=== PATIENT | female | born 1955 | race Caucasian/White ===

== ENCOUNTER 2019-09-10 23:10 | Inpatient (IN) ==
[2019-09-11] MEDS ORDERED: ACETAMINOPHEN 325 MG TAB PO PRN (03:21)
[2019-09-11] MEDS ORDERED: HYDROmorphone INJ 0.5 MG/0.5 ML SYR IV PRN (03:21)
[2019-09-11] MEDS ORDERED: ONDANSETRON INJ 2 MG/ML 2 ML VIAL IV PRN (03:21)
[2019-09-11] MEDS: SODIUM CHLORIDE 0.9% 1000ML 1,000 ML IV SCH ×3 (03:37→21:18)
[2019-09-11] MEDS ORDERED: FLUTICASONE/VILANTEROL 100/25MCG 14 PUFFS/INHALER INH PRN (03:56)
[2019-09-11] MEDS ORDERED: FEXOFENADINE 60MG/PSEUDOEPHEDRINE 120MG TAB PO PRN (03:58)
--- NOTE | 2019-09-11 04:07 | History and Physical Report ---
DATE OF ADMISSION: 09/11/2019 CHIEF COMPLAINT: Right flank pain. HISTORY OF PRESENT ILLNESS: This is a 64-year-old female with past medical history significant for history of hypothyroidism, gastric bypass in 2005, history of hypertension, depression, morbid obesity, obstructive sleep apnea, was transferred from [facility] because of the right hydronephrosis and possible pyelonephritis. The patient says since about a week ago she is having pressure in the suprapubic region, but the day before yesterday she had some burning micturition and called family doctor and was prescribed Keflex, but since yesterday afternoon, she had severe pain in the right groin region, which prompted her to go to the [facility] where a workup was done. Her UA was positive and her creatinine was okay. White count was 16. Imaging studies, CT of the abdomen and pelvis shows right sided hydronephrosis and hydroureter, but no evidence of stone. Findings may be secondary to pyelonephritis or infection and the patient was transferred here for Urology consult. The patient received Rocephin and pain medication at an outside hospital. Currently resting comfortably and hemodynamically stable. The pain has improved. Earlier she felt nauseous but ok now.About a week ago, she had some low-grade temperature, but right now she is afebrile. Lives with her . No other complaints. No headache, no blurred vision, no earache, no runny nose, no sore throat, no cough, no difficulty swallowing. No loss of sense of smell or taste. No shortness of breath, no chest pain, no diarrhea, no constipation, no blood in stool or black stool, no hematuria. No rash. No edema. ALLERGIES: PENICILLINS AND SULFA ANTIBIOTICS. PAST MEDICAL HISTORY: As mentioned above. PAST SURGICAL HISTORY: Had sinus surgery, gastric bypass surgery, ligation of oviducts, removal of thyroid gland, tonsillectomy, total abdominal hysterectomy with removal of tubes. MEDICATIONS: The patient is on Symbicort 2 puffs inhalation b.i.d. p.r.n., Cymbalta 30 mg p.o. daily, Clotilde D 24 hour one tablet a.m., Synthroid 200 mcg p.o. daily, lisinopril 40 mg p.o. daily. FAMILY HISTORY: She says both parents are in their 90s and they are doing good. Brother has diabetes. SOCIAL HISTORY: , lives with her . No smoking, no alcohol. REVIEW OF SYMPTOMS: As per HPI. Rest of review of symptoms negative. PHYSICAL EXAMINATION: GENERAL: The patient is obese, not in acute distress. VITAL SIGNS: Temperature 37, pulse 91, respiratory rate 16, blood pressure 107/71, oxygen 94% room air. HEENT: Head atraumatic. NECK: No JVD, no neck masses. CARDIOVASCULAR: S1, S2 heard, regular rate and rhythm, no murmur, no gallop. RESPIRATORY SYSTEM: Normal AP diameter. No accessory muscle use. No wheezing, no crackles. ABDOMEN: Soft, bowel sounds present, nontender. No distention, no CVA tenderness, no guarding, no rigidity. CENTRAL NERVOUS SYSTEM: Cranial nerves II-XII grossly intact. Nonfocal. EXTREMITIES: No edema, no erythema. LABORATORY DATA: Labs done at [facility]. UA is positive for nitrite. Urine colony preliminary report shows gram-negative bacillus. Sodium 135, potassium 4.2, chloride 103, bicarbonate 25, BUN 17, creatinine 0.8, serum glucose 152, calcium 8.7, total bilirubin 0.6, AST 29, ALT 35, alkaline phosphatase 124, lipase 159. WBC 16, hemoglobin 13.7, hematocrit 39.8, platelets 287. IMAGING: CT of abdomen and pelvis shows right sided hydronephrosis and hydroureter, but no evidence of stone, findings may be secondary to pyelonephritis or infection. ASSESSMENT AND PLAN: This is a 64-year-old female who went to [facility] because of right groin and flank pain and also found to have urinary tract infection and also right hydronephrosis and hydroureter with no stone, possible pyelonephritis. 1. Right sided hydronephrosis, hydroureter, urinary tract infection: Possible pyelonephritis, leukocytosis. UA is positive with gram-negative bacilli. Empirically started on IV Rocephin, IV fluids, n.p.o. for now, IV Dilaudid p.r.n. for pain, IV antiemetics. Consult Urology. Follow the cultures. 2. Obstructive sleep apnea: On CPAP at bedtime. 3. History of hypertension: On lisinopril. We will monitor blood pressure. 4. Hypothyroidism: Continue Synthroid. 5. Depression: Continue Cymbalta. 6. Deep venous thrombosis prophylaxis: Sequential compression devices. DISPOSITION: Monitor in the medical floor. Expect discharge home and follow with family doctor. Level 1 full code. MTDD
[2019-09-11 06:22] LABS: Basophils # (auto) 0.04 K/uL (0-0.2); Basophils % (auto) 0.6 %; Eosinophils # (auto) 0.16 K/uL (0-0.5); Eosinophils % (auto) 2.3 %; Hematocrit (blood only) 37.5 % (37-47); Hemoglobin 12.6 g/dL (12.0-16.0); Immature Granulocytes # (auto) 0.05 K/uL (0.00-0.02); Immature Granulocytes % (auto) 0.7 %; Lymphocytes # (auto) 1.38 K/uL (1.2-3.4); Lymphocytes % (auto) 19.6 %; Mean Corpuscular Hemoglobin 33.1 pg (25-34); Mean Corpuscular Hgb Conc 33.6 g/dL (32-36); Mean Corpuscular Volume 98.4 fL (80-100); Mean Platelet Volume 10.4 fL (7.4-10.4); Monocytes # (auto) 0.97 K/uL (0.11-0.59); Monocytes % (auto) 13.8 %; Neutrophils # (auto) 4.44 K/uL (1.4-6.5); Platelet Count 239 K/uL (130-400); RDW Coefficient of Variation 12.9 % (11.5-14.5); RDW Standard Deviation 46.8 fL (36.4-46.3); Red Blood Count 3.81 M/uL (4.2-5.4); White Blood Count 7.04 K/uL (4.8-10.8)
[2019-09-11] MEDS: LEVOTHYROXINE SODIUM 200 MCG TABLET PO SCH (06:31)
[2019-09-11 06:32] LABS: INR 1.1 (0.9-1.1); Partial Thromboplastin Time 27.5 Seconds (21.0-31.0); Prothrombin Time 11.6 Seconds (9.0-12.0)
--- NOTE | 2019-09-11 06:59 | Hospitalist Progress Note ---
Date of Service September 11, 2019 Assessment & Plan (1) UTI (urinary tract infection): (2) Pyelonephritis: (3) Hydroureter: (4) Hydronephrosis: eval, Abx, w/u in progress Labs checked ROS-No Headache, No Visual Changes, No Nausea, No Vomiting, No Fever, No Chills, No Neck Pain or Stiffness, No Chest Pain, No Palpitations, No SOB, No RESENDIZ, No Cough, No Sputum, No Wheezing, No Abdominal Pain, No Diarrhea, No Hematemesis, No Hemoptysis, No Unexpected Weight Loss, No Flank pain, No Melena, No Hematochezia, No Frequency, No Urgency, No Burning, No Hematuria, No Rashes, No Diaphoresis. Appetite is Normal Physical Exam Gen-AAO x 3, NAD, Afebrile Head-NCAT, EOMI, PERRLA, Anicteric Sclera, No Posterior Pharyngeal Erythema Neck-Supple, No JVD, No Thyromegaly, No Masses, No LAD, No Bruits Lungs-Clear to Auscultation Bilaterally, No Rales, No Rhonchi, No Wheezing, No Crepitus Chest-No S4, +S1, +S2, No S3, No Murmurs, No Rubs, No Gallops, No Ectopy Abdomen-Soft, Bowel Sounds Present, Non Tender, Non Distended, No Hepatomegaly, No Splenomegaly, No Palpable Masses, No Rebound, No Rigidity, No Guarding Musculoskeletal-Full Range of Motion Bilaterally, No CVAT Extremities-No Cyanosis, No Clubbing, No Edema Nuero-Cranial Nerves II-XII grossly intact, Motor WNL, DTRs WNL, Strength WNL, Non Focal Psych-Normal Mood Admission and Anticipated Discharge Date Admission Date: September 11, 2019 Results & Data Results & Data ([facility]) Vital Signs (Past 12 Hours) Vital Signs Temp Pulse Resp BP Pulse Ox 09/11/19 02:13 37 C 91 H 16 107/71 94
[2019-09-11 07:04] LABS: BUN Creatinine Ratio 21.6 (10-20); Calcium 8.2 mg/dl (8.5-10.1); Creatinine Clr Calc Pharmacy 89.5 ml/min; Est GFR (African American) 92.5; Est GFR (Non-African American) 79.8; Potassium 3.8 mmol/L (3.5-5.1)
--- NOTE | 2019-09-11 07:31 | XRay Report ---
XR chest 1V portable CLINICAL HISTORY: Preoperative evaluation. COMPARISON STUDY: No previous studies for comparison. FINDINGS: Lung volumes are normal. Lungs are clear. There is no pneumothorax or pleural effusion. Car diac size is at the upper limits of normal. Mediastinal contours are normal. There is no evidence for pulmonary edema. Surgical clips project over the lower neck and upper chest. IMPRESSION: No acute cardiopulmonary findings. ACT 112: Negative or not required by law. Electronically signed by: Anup Harrison M.D. 09/11/2019 7:30 AM
[2019-09-11] MEDS: cefTRIAXone SODIUM 2,000 MG in DEXTROSE 5% 50 ML IV SCH (09:04)
[2019-09-11] MEDS: lisinopriL 40 MG TAB PO SCH (09:06)
[2019-09-11] MEDS: DULOXETINE HCL 30 MG CAP PO SCH (09:06)
--- NOTE | 2019-09-11 12:41 | Urology Consultation ---
Date of Consultation September 11, 2019 Assessment & Plan (1) UTI (urinary tract infection): (2) Pyelonephritis: Agree with supportive care and management of UTI and pyelo with IV abx and monitoring. Will need repeat imaging with SUSAN in next 2-3 days to confirm improvement of [place] vs chronic issue. Recommend continued drainage if retaining with catheter but okay to try to monitor with voiding. Monitor for worsening fevers or renal failure. Continue with monitoring. Will hold on any surgical intervention at this time unless severe fevers or renal function changes. Will need outpatient monitoring and workup in future for plans for prevention of further UTI. (3) Hydroureter: History of Present Illness Attending Physician: Gabriel Rodrigues DO History of Present Illness New consultation for patient with UTI/Pyelo, discomfort, and ill feelings. Long history of issues and previous UTI. Patient developed sudden onset of pain into flank going down and radiating into groin and back in waves comes and goes. Can be severe at times. Found to have hydronephrosis without obvious stone on outside imaging. Discussed and reviewed patient's family history for any history of issues, infections, and disease. Also, discussed patient's medical/surgery history especially related to any history of urinary issues or stone disease. No significant family history of issues. Patient was admitted and is undergoing observation with broad spectrum IV antibiotics. Allergies Allergy/AdvReac Type Severity Reaction Status Date / Time Sulfa (Sulfonamide Allergy Unknown Verified 09/11/19 03:19 Antibiotics) Home Medications Home Medications Medication Instructions Recorded Confirmed Type budesonide-formoterol [Symbicort] 2 puff INHALATION BID PRN 09/11/19 09/11/19 History duloxetine [Cymbalta] 30 mg PO DAILY 09/11/19 09/11/19 History fexofenadine-pseudoephedrine 1 tab PO QAM 09/11/19 09/11/19 History [Clotilde-D 24 Hour] levothyroxine [Synthroid] 200 mcg PO DAILY 09/11/19 09/11/19 History lisinopril 40 mg PO DAILY 09/11/19 09/11/19 History Patient History Social History Smoking Status: Never smoker Hx Alcohol Use: No Hx Substance Use: No Preferred Language: Nigerian Tariff Compiler Required: No Beliefs That Will Affect Care: None Current Living Situation: Spouse Other Information That Helps Us Care for You: No Feels Safe at Home: Yes Safety Concerns: Feels Safe At This Time Review of Systems Review of Systems: All systems reviewed & are unremarkable except as noted in HPI & below Physical Exam Physical Exam: General: Alert and oriented x 3 in no acute distress. Patient is well nourished and well kept. HEENT: Normocephalic Atraumatic. Inspection normal. Cranial Nerves 2-12 Grossly intact. Nares are clear. Neck is supple. Normal inspection of face. Normal inspection of neck. Neurologic: No deficits on inspection. Baseline for motor function and sensory. Psychologic: Normal affect. Respiratory: Nonlabored. No use of accessory muscles. No tachypnea or dyspnea. Cardiovascular: No tachycardia Skin: [place] and Dry. No rashes or visible lesions. Extremities: Moving without issues. No motor deficits on inspection Lymphatics: No edema Abdomen: Soft Non-distended. No acites. No rebound or guarding. Results & Data Vital Signs (Past 12 Hours) Vital Signs Temp Pulse Resp BP Pulse Ox 09/11/19 07:22 36.7 C 60 18 103/60 95 09/11/19 02:13 37 C 91 H 16 107/71 94 PG Care Time/CCT Total # of Minutes Spent Total Time Spent with Patient: Total time spent is greater than 50% in coordination of care (as documented) at patient's floor/unit and/or counseling patient: Coding Level of Care Code 43694 Inpt Consult Level 5 Diagnoses UTI (urinary tract infection) N39.0 Pyelonephritis N12 Hydroureter N13.4
--- NOTE | 2019-09-11 16:04 | Electrocardiogram Report ---
Test Reason : Blood Pressure : / mmHG Vent. Rate : 065 BPM Atrial Rate : 065 BPM P-R Int : 168 ms QRS Dur : 104 ms QT Int : 426 ms P-R-T Axes : 036 041 055 degrees QTc Int : 443 ms Normal sinus rhythm Normal ECG No previous ECGs available Confirmed by Konstantin Frausto ([id number]) on 09/11/2019 4:04:12 PM Referred By: Rashard York Confirmed By:Konstantin Frausto
[2019-09-12] MEDS: SODIUM CHLORIDE 0.9% 1000ML 1,000 ML IV SCH ×2 (05:34→13:43)
[2019-09-12] MEDS: LEVOTHYROXINE SODIUM 200 MCG TABLET PO SCH (05:34)
--- NOTE | 2019-09-12 06:53 | Hospitalist Progress Note ---
Date of Service September 12, 2019 Assessment & Plan (1) UTI (urinary tract infection): (2) Pyelonephritis: (3) Hydroureter: (4) Hydronephrosis: on case, Abx, repeat imaging today Labs checked ROS-No Headache, No Visual Changes, No Nausea, No Vomiting, No Fever, No Chills, No Neck Pain or Stiffness, No Chest Pain, No Palpitations, No SOB, No RESENDIZ, No Cough, No Sputum, No Wheezing, No Abdominal Pain, No Diarrhea, No Hematemesis, No Hemoptysis, No Unexpected Weight Loss, No Flank pain, No Melena, No Hematochezia, No Frequency, No Urgency, No Burning, No Hematuria, No Rashes, No Diaphoresis. Appetite is Normal Physical Exam Gen-AAO x 3, NAD, Afebrile Head-NCAT, EOMI, PERRLA, Anicteric Sclera, No Posterior Pharyngeal Erythema Neck-Supple, No JVD, No Thyromegaly, No Masses, No LAD, No Bruits Lungs-Clear to Auscultation Bilaterally, No Rales, No Rhonchi, No Wheezing, No Crepitus Chest-No S4, +S1, +S2, No S3, No Murmurs, No Rubs, No Gallops, No Ectopy Abdomen-Soft, Bowel Sounds Present, Non Tender, Non Distended, No Hepatomegaly, No Splenomegaly, No Palpable Masses, No Rebound, No Rigidity, No Guarding Musculoskeletal-Full Range of Motion Bilaterally, No CVAT Extremities-No Cyanosis, No Clubbing, No Edema Nuero-Cranial Nerves II-XII grossly intact, Motor WNL, DTRs WNL, Strength WNL, Non Focal Psych-Normal Mood Admission and Anticipated Discharge Date Admission Date: September 11, 2019 Results & Data Results & Data ([facility]) Vital Signs (Past 12 Hours) Vital Signs Temp Pulse Resp BP Pulse Ox 09/11/19 22:52 36.5 C 67 17 114/71 94
[2019-09-12] MEDS: cefTRIAXone SODIUM 2,000 MG in DEXTROSE 5% 50 ML IV SCH (08:47)
[2019-09-12] MEDS: DULOXETINE HCL 30 MG CAP PO SCH (08:48)
[2019-09-12] MEDS: lisinopriL 40 MG TAB PO SCH (08:48)
[2019-09-12 10:06] LABS: Basophils # (auto) 0.05 K/uL (0-0.2); Basophils % (auto) 0.9 %; Eosinophils % (auto) 5.3 %; Hematocrit (blood only) 39.9 % (37-47); Immature Granulocytes # (auto) 0.02 K/uL (0.00-0.02); Immature Granulocytes % (auto) 0.4 %; Lymphocytes % (auto) 24.5 %; Mean Corpuscular Hemoglobin 32.3 pg (25-34); Mean Corpuscular Hgb Conc 32.6 g/dL (32-36); Mean Platelet Volume 10.8 fL (7.4-10.4); Monocytes # (auto) 0.45 K/uL (0.11-0.59); Monocytes % (auto) 7.9 %; Neutrophils # (auto) 3.49 K/uL (1.4-6.5); Platelet Count 270 K/uL (130-400); RDW Coefficient of Variation 12.9 % (11.5-14.5); RDW Standard Deviation 46.7 fL (36.4-46.3); Red Blood Count 4.03 M/uL (4.2-5.4); White Blood Count 5.71 K/uL (4.8-10.8)
[2019-09-12 10:42] LABS: Albumin Globulin Ratio 0.8 (0.9-2); Albumin Level 3.2 gm/dl (3.4-5.0); BUN Creatinine Ratio 14.6 (10-20); Bilirubin,Total 0.3 mg/dl (0.2-1); Calcium 8.6 mg/dl (8.5-10.1); Creatinine Clr Calc Pharmacy 93.1 ml/min; Est GFR (African American) 96.9; Est GFR (Non-African American) 83.6; Globulin 4.2 gm/dl (2.5-4.0); Potassium 3.8 mmol/L (3.5-5.1); Total Protein 7.4 gm/dl (6.4-8.2)
--- NOTE | 2019-09-12 11:26 | Ultrasound Report ---
US renal/blad retro comp HISTORY: 64 years-old Female Hydronephrosis, Hydroureter follow-up study in a patient with right hyd ronephrosis COMPARISON: CT abdomen and pelvis from outside facility 09/10/2019 TECHNIQUE: Multiple real-time sonographic images of the kidneys and urinary bladder were obtained ass essing grayscale appearance and color flow FINDINGS: The right kidney measures 12.6 x 5.1 x 6.5 cm. There is mild pelviectasis with apparent resolution of the previously described hydronephrosis. No right-sided renal calculi or suspicious mass lesions. Left kidney measures 11.8 x 5.2 x 4.8 cm and is unremarkable without renal calculi, hydronephrosis or suspicious mass lesion. Urinary bladder is unremarkable with bilateral ureteral jets noted. Hepatic steatosis. IMPRESSION: 1. Mild right-sided pelviectasis without appreciable hydronephrosis. 2. No renal calculi identified. 3. Hepatic steatosis. ACT 112: Negative or not required by law. The above report was generated using voice recognition software. It may contain grammatical, syntax o r spelling errors. Electronically signed by: Iggy Hernandez M.D. 09/12/2019 11:25 AM
--- NOTE | 2019-09-12 12:47 | Discharge Summary ---
Date of Service September 12, 2019 Admission HPI Per Admitting Provider 64-year-old female with past medical history significant for history of hypothyroidism, gastric bypass in 2005, history of hypertension, depression, morbid obesity, obstructive sleep apnea, was transferred from [facility] because of the right hydronephrosis and possible pyelonephritis. The patient says since about a week ago she is having pressure in the suprapubic region, but the day before yesterday she had some burning micturition and called family doctor and was prescribed Keflex, but since yesterday afternoon, she had severe pain in the right groin region, which prompted her to go to the [facility] where a workup was done. Her UA was positive and her creatinine was okay. White count was 16. Imaging studies, CT of the abdomen and pelvis shows right sided hydronephrosis and hydroureter, but no evidence of stone. Findings may be secondary to pyelonephritis or infection and the patient was transferred here for Urology consult. The patient received Rocephin and pain medication at an outside hospital. Currently resting comfortably and hemodynamically stable. The pain has improved. Earlier she felt nauseous but ok now.About a week ago, she had some low-grade temperature, but right now she is afebrile. Lives with her . No other complaints. No headache, no blurred vision, no earache, no runny nose, no sore throat, no cough, no difficulty swallowing. No loss of sense of smell or taste. No shortness of breath, no chest pain, no diarrhea, no constipation, no blood in stool or black stool, no hematuria. No rash. No edema. Admission Exam Per Admitting Provider GENERAL: The patient is obese, not in acute distress. VITAL SIGNS: Temperature 37, pulse 91, respiratory rate 16, blood pressure 107/71, oxygen 94% room air. HEENT: Head atraumatic. NECK: No JVD, no neck masses. CARDIOVASCULAR: S1, S2 heard, regular rate and rhythm, no murmur, no gallop. RESPIRATORY SYSTEM: Normal AP diameter. No accessory muscle use. No wheezing, no crackles. ABDOMEN: Soft, bowel sounds present, nontender. No distention, no CVA tenderness, no guarding, no rigidity. CENTRAL NERVOUS SYSTEM: Cranial nerves II-XII grossly intact. Nonfocal. EXTREMITIES: No edema, no erythema. Principal Diagnosis (1) UTI (urinary tract infection): (2) Pyelonephritis: (3) Hydroureter: (4) Hydronephrosis: Discharge Exam See below Discharge Data Allergies Allergy/AdvReac Type Severity Reaction Status Date / Time Sulfa (Sulfonamide Allergy Unknown Verified 09/11/19 03:19 Antibiotics) Consultations 09/11/19 03:21 Consult Case Management - Discharge Planning Routine 09/11/19 08:00 Consult Urology Routine Ordered Studies 09/12/19 06:53 US renal/blad retro comp Routine IMPRESSION: 1. Mild right-sided pelviectasis without appreciable hydronephrosis. 2. No renal calculi identified. 3. Hepatic steatosis. Hospital Course (1) UTI (urinary tract infection): (2) Pyelonephritis: (3) Hydroureter: (4) Hydronephrosis: on case, Abx, repeat imaging today revealed no hydronephrosis, will DC today on PO Ceftin for 7 days Labs checked ROS-No Headache, No Visual Changes, No Nausea, No Vomiting, No Fever, No Chills, No Neck Pain or Stiffness, No Chest Pain, No Palpitations, No SOB, No RESENDIZ, No Cough, No Sputum, No Wheezing, No Abdominal Pain, No Diarrhea, No Hematemesis, No Hemoptysis, No Unexpected Weight Loss, No Flank pain, No Melena, No Hematochezia, No Frequency, No Urgency, No Burning, No Hematuria, No Rashes, No Diaphoresis. Appetite is Normal Physical Exam Gen-AAO x 3, NAD, Afebrile Head-NCAT, EOMI, PERRLA, Anicteric Sclera, No Posterior Pharyngeal Erythema Neck-Supple, No JVD, No Thyromegaly, No Masses, No LAD, No Bruits Lungs-Clear to Auscultation Bilaterally, No Rales, No Rhonchi, No Wheezing, No Crepitus Chest-No S4, +S1, +S2, No S3, No Murmurs, No Rubs, No Gallops, No Ectopy Abdomen-Soft, Bowel Sounds Present, Non Tender, Non Distended, No Hepatomegaly, No Splenomegaly, No Palpable Masses, No Rebound, No Rigidity, No Guarding Musculoskeletal-Full Range of Motion Bilaterally, No CVAT Extremities-No Cyanosis, No Clubbing, No Edema Nuero-Cranial Nerves II-XII grossly intact, Motor WNL, DTRs WNL, Strength WNL, Non Focal Psych-Normal Mood Total Time Total Time Spent Total Time Spent (In Minutes): 45 mins Total Time Includes: Examination of the Patient, Discharge Planning, Medication Reconciliation and Communication With Other Providers Discharge Plan Discharge Items Patient Disposition: Home - Self-Care Reason For Visit: COMPLICATED UTI,HYDRONEPHROSIS Discharge Diagnosis: (1) UTI (urinary tract infection): (2) Pyelonephritis: (3) Hydroureter: (4) Hydronephrosis: Condition on Discharge: Good Activity: Resume your previous activity Lifting: Gradually increase as tolerated Bathing: No limitations Sexual Activity: When tolerated Exercise/Sports: Rest today and Gradually increase as tolerated Driving/Machine Use: No limitations Weightbearing: Full weightbearing Non-emergency contact: Primary Care Provider Call non-emergency contact if: you have any medication questions Follow-up/Referrals: Luz Porter MD [Primary Care Provider] - (Follow up as needed) Gilmar Cruz MD [Physician] - (Call for first opening, follow up with Dr Cruz or Jose Manuel) Diet: Regular Addtl Attending Provider Instructions: Drink plenty fluids Pending Studies at Discharge: No Stand-Alone Forms: My [employer], Smoking Cessation Medications and DC Order Prescriptions: New acetaminophen 325 mg Tablet 650 mg PO Q4H PRN (Reason: fever or pain) Qty: 30 RF: 0 cefuroxime axetil 500 mg tablet 500 mg PO BID 7 Days Qty: 14 RF: 0 Continued lisinopril 40 mg Tablet 40 mg PO DAILY RF: 0 levothyroxine [Synthroid] 200 mcg Tablet 200 mcg PO DAILY RF: 0 duloxetine [Cymbalta] 30 mg Capsule,Delayed Release(Dr/Ec) 30 mg PO DAILY RF: 0 Clotilde-D 24 Hour 180-240 mg Tablet Extended Release 24 Hr 1 tab PO QAM RF: 0 budesonide-formoterol [Symbicort] 80-4.5 mcg/actuation Hfa Aerosol Inhaler 2 puff INHALATION BID PRN (Reason: Allergy Symptoms) RF: 0 Discharge Orders: Discharge Order (Routine); Ordered 09/12/19 Ordered By: Gabriel Rodrigues Admission Data Admit Date/Time: 09/11/19 01:37 Attending Provider: Gabriel Rodrigues Admit Provider: Rashard York Primary Care Provider: Luz Porter Other Providers: Gilmar Cruz
== END 2019-09-12 14:19 | disposition home or self-care (01) | DRG 690 ==
LOC: 2N 09-11 01:37 → SUATTDRO 09-11 01:37

== ENCOUNTER 2021-05-02 10:22 | Observation (INO) ==
[2021-05-02] MEDS ORDERED: SODIUM CHLORIDE 0.9% 500 ML IV STA (11:27)
[2021-05-02] MEDS ORDERED: ONDANSETRON INJ 2 MG/ML 2 ML VIAL IV STA (11:27)
--- NOTE | 2021-05-02 11:29 | Emergency Department Note ---
Impression & Plan Transaminitis ADMIT ED Provider Note HPI: The patient is a 65-year-old female who presents the emergency department with a chief complaint of abnormal outpatient lab work. Patient states that for the past month she has had some generalized weakness, she is also had some nausea, she states that she mentioned the symptoms to her PCP and outpatient lab work-up was initiated. Patient states that she several weeks ago had some mild elevation in her liver enzymes which worsened acutely on repeat lab work that was done over the past several days. She was advised to come to the emergency department for further assessment. ROS: -General: Generalized weakness, abnormal outpatient lab work -GI: Nausea *10 point review systems was conducted and is otherwise negative unless stated above *Outpatient medications and allergy history reviewed PE: General: Alert, NAD HEENT: Normocephalic, atraumatic Eyes: Extraocular eye movement is intact, no scleral erythema Pulmonary: Clear to auscultation bilaterally, no wheezing Cardio: Regular rate and rhythm GI: Abdomen is soft, nontender : No suprapubic tenderness MSK: No evidence of trauma or malformation of the extremities, no edema Skin: No evidence of rash, mild jaundiced appearance Neuro: Alert, no focal deficits Psychiatric: Cooperative gut dropper: - An order was placed for continuous cardiac monitoring - Patient was noted to be in sinus rhythm with rate of 70 Medical Decision Making: Patient presents the ED in no acute distress, she is noted to have a mild jaundiced appearance, does have a history of elevated LFTs as an outpatient and therefore presented to the emergency department for further assessment. She complains of some weakness and nausea but states she has not had any abdominal pain, denies any vomiting. IV was established, lab work obtained, lab work does show evidence of a transaminitis in addition to hyperbilirubinemia with a bilirubin of 3.7, CT imaging does not show any evidence of obstruction or cholecystitis, does show evidence of severe hepatic steatosis. There is also some mention of mild dilation of the pancreatic duct. Present imaging of the gallbladder does not show any evidence of cholecystitis. Does show evidence of cholelithiasis with some sludge. I discussed the above findings with on-call GI midlevel provider, Armida Lombardo, who states the patient can be admitted to the hospitalist service and will plan for ERCP tomorrow morning and MRCP in the meantime this afternoon. Patient is in agreement to this plan and she was admitted to the hospitalist service in stable condition following my discussion with Dr. Apodaca. Diagnosis: 1. Jaundice, painless 2. Weakness, nausea 3. Hyperbilirubinemia 4. Transaminitis 5. Hepatic steatosis Disposition: ADMIT Baltazar Mckeon DO Emergency Medicine Past Med/Surg History Medical History (Updated 05/02/21 @ 17:12 by Baltazar Mckeon DO) Hypothyroidism Surgical History (Updated 05/02/21 @ 16:39 by Jane Alvarado PA-C) H/O gastric bypass H/O sinus surgery H/O: hysterectomy History of surgery ligation of oviducts removal of thyroid Hx of tonsillectomy Family History Brother Diabetes Social History Smoking Status: Never smoker Hx Alcohol Use: No Hx Substance Use: No Preferred Language: Lebanese Communication Ability: Effective Ent Consultant Required: No Beliefs That Will Affect Care: None marital status: Current Living Situation: Spouse Feels Safe at Home: Yes Assistive Devices: Glasses Allergies Allergies Allergy/AdvReac Type Severity Reaction Status Date / Time Sulfa (Sulfonamide Allergy Unknown Verified 05/02/21 12:08 Antibiotics) Home Meds Home Medications Medication Instructions Recorded Confirmed duloxetine 30 mg capsule,delayed 30 mg PO QAM 09/11/19 05/02/21 release (Cymbalta) levothyroxine 200 mcg tablet 200 mcg PO DAILYBB 09/11/19 05/02/21 (Synthroid) lisinopril 40 mg tablet 40 mg PO QAM 09/11/19 05/02/21 albuterol sulfate 90 mcg/actuation 2 inh INHALATION Q4H PRN 07/18/20 05/02/21 aerosol inhaler (Ventolin HFA) coenzyme Q10 100 mg capsule (Co 100 mg PO QAM 07/18/20 05/02/21 Q-10) famotidine 20 mg tablet (Pepcid) 20 mg PO BID 07/18/20 05/02/21 vitamin B complex 1 tab PO QAM 07/18/20 05/02/21 bupropion HCl 100 mg tablet,12 hr 100 mg PO BIDM 05/02/21 05/02/21 sustained-release ondansetron 8 mg disintegrating 8 mg TRANSLINGUAL Q6H PRN 05/02/21 05/02/21 tablet Previous Rx's Medication Instructions Recorded conjugated estrogens 0.625 mg/gram 0.625 mg VAGINAL .COMPLEX #30 g 01/30/21 vaginal cream (Premarin) Results & Data (ED) Vital Signs Vital Signs - 24 hr 05/02/21 10:36 05/02/21 11:31 05/02/21 11:42 Temperature 36.6 C Temperature Source Temporal Artery Scan Pulse Rate 78 68 64 Pulse Rate [Apical] 65 Pulse Rate from SpO2 Sensor 68 Respiratory Rate 20 19 20 Respiratory Effort / Characteristics Non-Labored Non-Labored Spontaneous Respiratory Depth Normal Normal Respiratory Pattern Regular Blood Pressure 143/84 H 139/84 Blood Pressure [Right Arm] 139/84 Blood Pressure Mean 103 102 Blood Pressure Mean [Right Arm] 102 Pulse Oximetry 95 95 97 Oxygen Delivery Method Room Air Room Air Sepsis Recent Fever Within 48 Hours No Sepsis New/Unexplained Change in Mental Status N/A Sepsis Action Taken by Nursing No Action Required 05/02/21 12:00 05/02/21 12:30 05/02/21 13:00 Temperature Temperature Source Pulse Rate 66 64 62 Pulse Rate [Apical] Pulse Rate from SpO2 Sensor 66 64 63 Respiratory Rate 19 18 15 Respiratory Effort / Characteristics Respiratory Depth Respiratory Pattern Blood Pressure Blood Pressure [Right Arm] Blood Pressure Mean Blood Pressure Mean [Right Arm] Pulse Oximetry 96 96 96 Oxygen Delivery Method Sepsis Recent Fever Within 48 Hours Sepsis New/Unexplained Change in Mental Status Sepsis Action Taken by Nursing 05/02/21 13:30 05/02/21 14:40 05/02/21 15:00 Temperature Temperature Source Pulse Rate 64 67 67 Pulse Rate [Apical] Pulse Rate from SpO2 Sensor 64 68 Respiratory Rate 16 19 20 Respiratory Effort / Characteristics Respiratory Depth Respiratory Pattern Blood Pressure 151/79 H Blood Pressure [Right Arm] Blood Pressure Mean 103 Blood Pressure Mean [Right Arm] Pulse Oximetry 96 95 Oxygen Delivery Method Sepsis Recent Fever Within 48 Hours Sepsis New/Unexplained Change in Mental Status Sepsis Action Taken by Nursing 05/02/21 15:30 Temperature Temperature Source Pulse Rate 67 Pulse Rate [Apical] Pulse Rate from SpO2 Sensor 68 Respiratory Rate 19 Respiratory Effort / Characteristics Respiratory Depth Respiratory Pattern Blood Pressure Blood Pressure [Right Arm] Blood Pressure Mean Blood Pressure Mean [Right Arm] Pulse Oximetry 95 Oxygen Delivery Method Sepsis Recent Fever Within 48 Hours Sepsis New/Unexplained Change in Mental Status Sepsis Action Taken by Nursing Laboratory Data Result diagrams: 05/02/21 11:36 05/02/21 11:36 Lab Results 05/02/21 05/02/21 05/02/21 Range/Units 11:30 11:36 11:36 WBC 6.16 (4.8-10.8) K/uL RBC 4.01 L (4.2-5.4) M/uL Hgb 13.4 (12.0-16.0) g/dL Hct 39.0 (37-47) % MCV 97.3 (80-100) fL MCH 33.4 (25-34) pg MCHC 34.4 (32-36) g/dL RDW Std Deviation 45.4 (36.4-46.3) fL RDW Coeff of Dl 12.7 (11.5-14.5) % Plt Count 180 (130-400) K/uL MPV 11.3 H (7.4-10.4) fL Immature Gran % (Auto) 0.3 % Neut % (Auto) 69.1 % Lymph % (Auto) 15.9 % [place] % (Auto) 10.7 % Eos % (Auto) 3.4 % Baso % (Auto) 0.6 % Neut # (Auto) 4.25 (1.4-6.5) K/uL Lymph # (Auto) 0.98 L (1.2-3.4) K/uL [place] # (Auto) 0.66 H (0.11-0.59) K/uL Eos # (Auto) 0.21 (0-0.5) K/uL Baso # (Auto) 0.04 (0-0.2) K/uL Immature Gran # (Auto) 0.02 (0.00-0.02) K/uL PT 11.4 (9.0-12.0) Seconds INR 1.1 (0.9-1.1) Sodium (136-145) mmol/L Potassium (3.5-5.1) mmol/L Chloride (98-107) mmol/L Carbon Dioxide (21-32) mmol/L Anion Gap (3-11) BUN (6-23) mg/dl Creatinine (0.6-1.2) mg/dl Est Cr Clr Drug Dosing ml/min Est GFR ( Amer) ml/min Est GFR (Non-Af Amer) ml/min BUN/Creatinine Ratio (10-20) Glucose (70-99(Fasting)) mg/dl Calcium (8.5-10.1) mg/dl Total Bilirubin (0.2-1.0) mg/dl AST (13-39) U/L ALT (7-52) U/L Alkaline Phosphatase (34-104) U/L Troponin I (0-0.04) ng/ml Total Protein (6.0-8.3) gm/dl Albumin (3.4-5.0) gm/dl Globulin (2.5-4.0) gm/dl Albumin/Globulin Ratio (0.9-2) Lipase (11-82) U/L Urine Color [place] Urine Appearance Cloudy A (Clear) Urine pH 5.5 (4.5-7.5) Ur Specific [place] 1.032 H (1.000-1.030) Urine Protein 1+ H (Negative) Urine Glucose (UA) 2+ H (Negative) Urine Ketones Trace H (Negative) Urine Blood 1+ H (Negative) Urine Nitrite Positive A (Negative) Urine Bilirubin 3+ H (Negative) Urine Urobilinogen Negative (Negative) Ur Leukocyte Esterase 1+ H (Negative) Urine WBC (Auto) 10-30 H (0-5) /hpf Urine RBC (Auto) 0-4 (0-4) /hpf U Hyaline Cast (Auto) 5-10 H (0-5) /lpf U Epithel Cells (Auto) 0-5 (0-5) /lpf Urine Bacteria (Auto) 4+ H (Negative) Urine Yeast Not Reportable SARS-CoV-2, RNA, NAAT (NEGATIVE) 05/02/21 05/02/21 Range/Units 11:36 16:11 WBC (4.8-10.8) K/uL RBC (4.2-5.4) M/uL Hgb (12.0-16.0) g/dL Hct (37-47) % MCV (80-100) fL MCH (25-34) pg MCHC (32-36) g/dL RDW Std Deviation (36.4-46.3) fL RDW Coeff of Dl (11.5-14.5) % Plt Count (130-400) K/uL MPV (7.4-10.4) fL Immature Gran % (Auto) % Neut % (Auto) % Lymph % (Auto) % [place] % (Auto) % Eos % (Auto) % Baso % (Auto) % Neut # (Auto) (1.4-6.5) K/uL Lymph # (Auto) (1.2-3.4) K/uL [place] # (Auto) (0.11-0.59) K/uL Eos # (Auto) (0-0.5) K/uL Baso # (Auto) (0-0.2) K/uL Immature Gran # (Auto) (0.00-0.02) K/uL PT (9.0-12.0) Seconds INR (0.9-1.1) Sodium 137 (136-145) mmol/L Potassium 3.7 (3.5-5.1) mmol/L Chloride 104 (98-107) mmol/L Carbon Dioxide 23 (21-32) mmol/L Anion Gap 10 (3-11) BUN 10 (6-23) mg/dl Creatinine 0.74 (0.6-1.2) mg/dl Est Cr Clr Drug Dosing 87.6 ml/min Est GFR ( Amer) 97.8 ml/min Est GFR (Non-Af Amer) 84.4 ml/min BUN/Creatinine Ratio 13.5 (10-20) Glucose 186 H (70-99(Fasting)) mg/dl Calcium 9.1 (8.5-10.1) mg/dl Total Bilirubin 3.7 H (0.2-1.0) mg/dl AST 341 H (13-39) U/L ALT 631 H (7-52) U/L Alkaline Phosphatase 187 H (34-104) U/L Troponin I < 0.03 (0-0.04) ng/ml Total Protein 7.1 (6.0-8.3) gm/dl Albumin 4.1 (3.4-5.0) gm/dl Globulin 3.0 (2.5-4.0) gm/dl Albumin/Globulin Ratio 1.4 (0.9-2) Lipase 15 (11-82) U/L Urine Color Urine Appearance (Clear) Urine pH (4.5-7.5) Ur Specific [place] (1.000-1.030) Urine Protein (Negative) Urine Glucose (UA) (Negative) Urine Ketones (Negative) Urine Blood (Negative) Urine Nitrite (Negative) Urine Bilirubin (Negative) Urine Urobilinogen (Negative) Ur Leukocyte Esterase (Negative) Urine WBC (Auto) (0-5) /hpf Urine RBC (Auto) (0-4) /hpf U Hyaline Cast (Auto) (0-5) /lpf U Epithel Cells (Auto) (0-5) /lpf Urine Bacteria (Auto) (Negative) Urine Yeast SARS-CoV-2, RNA, NAAT NEGATIVE (NEGATIVE) Administered Medications Discontinued Medications Sodium Chloride (Nss) 500 mls @ 999 mls/hr IV .Q31M STA Stop: 05/02/21 11:57 Last Infusion: 05/02/21 14:25 Dose: 0 mls/hr Documented by: [id number] Admin: 05/02/21 11:36 Dose: 999 mls/hr Documented by: [id number] Ioversol (Optiray 320 100ml) 94 ml IV ONCE ONE Stop: 05/02/21 12:46 Last Admin: 05/02/21 12:46 Dose: 94 ml Documented by: [id number] Ondansetron HCl (Ondansetron Inj 2 Mg/Ml 2 Ml Vial) 4 mg IV NOW STA Stop: 05/02/21 11:28 Last Admin: 05/02/21 11:35 Dose: 4 mg Documented by: [id number] Imaging Data Radiologist's Impression: Abdomen/Pelvis CT 05/02/21 11:27 CT SCAN OF THE ABDOMEN AND PELVIS WITH IV CONTRAST CLINICAL HISTORY: Nausea. Elevated hepatic transaminases. COMPARISON STUDY: Renal ultrasound dated 02/14/2021. Abdominal CT dated 09/10/2019. TECHNIQUE: Following the IV administration of 94 cc of Optiray 320, CT scan of the abdomen and pelvis is performed from the lung bases to the proximal femora. Images are reviewed in the axial, sagittal, and coronal planes. IV contrast was administered without complication. A dose lowering technique was utilized adhering to the principles of ALARA. CT DOSE: 1459.82 mGy.cm FINDINGS: Lung bases: The heart is normal in size and without pericardial effusion. The lung bases are noting mild bibasilar scarring/atelectasis. Liver: The contrast-enhanced liver is enlarged, measuring 21.2 cm in length. The liver demonstrates diffusely diminished attenuation consistent with severe hepatic steatosis. Fatty sparing is seen adjacent to gallbladder fossa. There is no intrahepatic biliary ductal dilatation. The hepatic veins and portal veins are patent. A 2.2 cm enhancing lesion in the right lobe as seen on image #90 a second 1.1 cm enhancing lesion is seen in the inferior right lobe on image #161. Gallbladder: The gallbladder is distended but otherwise normal in appearance. Small gallstones are noted on image #202. Spleen: Normal in size and attenuation. Pancreas: The pancreas is atrophic. There is nonspecific prominence of the pancreatic duct which measures up to 9 mm in diameter. Adrenal glands: Unremarkable. Kidneys: The contrast enhanced kidneys are normal in size and without hydronephrosis. The kidneys enhance symmetrically. Foci of cortical scarring are noted in the left kidney. A 13 mm cyst is noted in the right upper pole. Additional subcentimeter cortical hypodensities also likely represent cysts but are too small for definitive characterization. Abdominal vasculature: The abdominal aorta is normal in course and caliber noting mild to moderate atherosclerotic calcification. Stomach and bowel: There is a small hiatal hernia. Postoperative change in consistent with a history of Tenisha-en-Y gastric bypass surgery. There is no bowel obstruction. Mild to moderate fecal retention is seen throughout the colon. The appendix is well-visualized and normal. Peritoneum: There is no intraperitoneal free air or abdominal ascites. Lymphadenopathy: None. Pelvic viscera: The bladder is decompressed and grossly unremarkable. The uterus is surgically absent. No adnexal lesion is seen. Skeletal structures: The skeletal structures are osteopenic. There is mild to moderate lumbosacral spondylosis. There is a chronic superior endplate compression deformity of L4. No lytic or blastic lesions are seen. IMPRESSION: 1. There are no acute infectious or inflammatory findings in the abdomen or pelvis. 2. Hepatomegaly and severe hepatic steatosis. 3. There is postoperative change consistent with a Tenisha-en-Y gastric bypass surgery. No bowel obstruction is identified. 4. The pancreas is atrophic and there is nonspecific dilatation of the pancreatic duct. This is of indeterminant etiology and significance, but appears to represent a change from the 09/10/2019 examination. Nonemergent GI follow-up is recommended. 5. Cholelithiasis within a distended gallbladder. There is no CT evidence of acute cholecystitis. 6. Moderate constipation. 7. There are at least 2 hypervascular hepatic lesions measuring up to 2.2 cm. These likely represent hemangiomas but are incompletely characterized on today's examination. If there is no cancer history these are of low suspicion. If definitive characterization is desired an MRI would likely be required. 8. Additional findings as above. ACT 112: Negative or not required by law. Electronically signed by: Ted Pfeiffer M.D. 05/02/2021 1:05 PM Gallbladder Ultrasound 05/02/21 12:46 ABDOMINAL ULTRASOUND, RIGHT UPPER QUADRANT HISTORY: elevated LFTs. COMPARISON: Abdomen and pelvis CT 05/02/2021. FINDINGS: Pancreas: Obscured by overlying bowel gas. Liver: The liver is echogenic consistent with fatty change. 20 cm in length. Gallbladder: The gallbladder remains distended. No gallbladder wall thickening. There are few small stones and sludge noted within the gallbladder. CBD: 5 mm. Right kidney: No hydronephrosis. IMPRESSION: 1. Hepatomegaly demonstrating fatty change. 2. A few small stones and sludge within the gallbladder which is distended. However, no gallbladder wall thickening. 3. The pancreas was obscured by overlying bowel gas. ACT 112: Negative or not required by law. Electronically signed by: Angelito Mary M.D. 05/02/2021 2:30 PM Discharge Plan Visit Data Chief Complaint: Abnormal Labs/Diagnostic Testing Stated Complaint: SENT BY FOR SCAN ED Provider: Baltazar Mckeon Discharge Problem: Transaminitis Forms Stand Alone Forms: [facility] Prescriptions Prescriptions: No Action Premarin 0.625 mg/gram cream 0.625 mg vaginal .COMPLEX Qty: 30 RF: 2 lisinopril 40 mg Tablet 40 mg PO QAM RF: 0 levothyroxine [Synthroid] 200 mcg Tablet 200 mcg PO DAILYBB RF: 0 duloxetine [Cymbalta] 30 mg Capsule,Delayed Release(Dr/Ec) 30 mg PO QAM RF: 0 bupropion HCl 100 mg tablet sustained-release 12 hr 100 mg PO BIDM RF: 0 ondansetron 8 mg tablet,disintegrating 8 mg translingual Q6H PRN (Reason: Nausea) RF: 0 famotidine [Pepcid] 20 mg Tablet 20 mg PO BID RF: 0 vitamin B complex Tablet 1 tab PO QAM RF: 0 albuterol sulfate [Ventolin HFA] 90 mcg/actuation Hfa Aerosol Inhaler 2 inh INHALATION Q4H PRN (Reason: Shortness Of Breath Or Wheezing) RF: 0 coenzyme Q10 [Co Q-10] 100 mg Capsule 100 mg PO QAM RF: 0 Referrals Referrals: Luz Porter MD [Primary Care Provider] -
[2021-05-02 11:45] LABS: Basophils # (auto) 0.04 K/uL (0-0.2); Basophils % (auto) 0.6 %; Eosinophils # (auto) 0.21 K/uL (0-0.5); Eosinophils % (auto) 3.4 %; Hemoglobin 13.4 g/dL (12.0-16.0); Immature Granulocytes # (auto) 0.02 K/uL (0.00-0.02); Immature Granulocytes % (auto) 0.3 %; Lymphocytes # (auto) 0.98 K/uL (1.2-3.4); Lymphocytes % (auto) 15.9 %; Mean Corpuscular Hemoglobin 33.4 pg (25-34); Mean Corpuscular Hgb Conc 34.4 g/dL (32-36); Mean Corpuscular Volume 97.3 fL (80-100); Mean Platelet Volume 11.3 fL (7.4-10.4); Monocytes # (auto) 0.66 K/uL (0.11-0.59); Monocytes % (auto) 10.7 %; Neutrophils # (auto) 4.25 K/uL (1.4-6.5); Neutrophils % (auto) 69.1 %; Platelet Count 180 K/uL (130-400); RDW Coefficient of Variation 12.7 % (11.5-14.5); RDW Standard Deviation 45.4 fL (36.4-46.3); Red Blood Count 4.01 M/uL (4.2-5.4); White Blood Count 6.16 K/uL (4.8-10.8)
[2021-05-02 11:54] LABS: Appearance Urine Cloudy (Clear); Bacteria Urine Automated 4+ (Negative); Blood Urine 1+ (Negative); Color Urine Orange; Epithelial Cell Urine Auto 0-5 /lpf (0-5); Glucose Urine UA 2+ (Negative); Ketones Urine Trace (Negative); Leukocyte Esterase Urine 1+ (Negative); Nitrite Urine Positive (Negative); Protein Urine 1+ (Negative); RBC Urine Automated 0-4 /hpf (0-4); Specific Gravity Urine 1.032 (1.000-1.030); Urobilinogen Urine Negative (Negative); pH Urine 5.5 (4.5-7.5)
[2021-05-02 11:54] LABS: INR 1.1 (0.9-1.1); Prothrombin Time 11.4 Seconds (9.0-12.0)
[2021-05-02 11:55] LABS: Bilirubin Urine 3+ (Negative)
[2021-05-02 12:08] LABS: Troponin I < 0.03 ng/ml (0-0.04)
[2021-05-02 12:21] LABS: Anion Gap 10 (3-11); BUN Creatinine Ratio 13.5 (10-20); Blood Urea Nitrogen 10 mg/dl (6-23); Calcium 9.1 mg/dl (8.5-10.1); Carbon Dioxide 23 mmol/L (21-32); Chloride 104 mmol/L (98-107); Creatinine Clr Calc Pharmacy 87.6 ml/min; Est GFR (African American) 97.8 ml/min; Est GFR (Non-African American) 84.4 ml/min; Glucose 186 mg/dl (70-99(Fasting)); Potassium 3.7 mmol/L (3.5-5.1); Sodium 137 mmol/L (136-145)
[2021-05-02 12:22] LABS: Albumin Globulin Ratio 1.4 (0.9-2); Albumin Level 4.1 gm/dl (3.4-5.0); Alkaline Phosphatase 187 U/L (34-104); Aspartate Aminotransferase 341 U/L (13-39); Bilirubin,Total 3.7 mg/dl (0.2-1.0); Lipase 15 U/L (11-82); Total Protein 7.1 gm/dl (6.0-8.3)
[2021-05-02] MEDS ORDERED: OPTIRAY 320 100ml IV ONE (12:45)
[2021-05-02 12:49] LABS: Alanine Aminotransferase 631 U/L (7-52)
--- NOTE | 2021-05-02 13:06 | CT Scan Report ---
CT SCAN OF THE ABDOMEN AND PELVIS WITH IV CONTRAST CLINICAL HISTORY: Nausea. Elevated hepatic transaminases. COMPARISON STUDY: Renal ultrasound dated 02/14/2021. Abdominal CT dated 09/10/2019. TECHNIQUE: Following the IV administration of 94 cc of Optiray 320, CT scan of the abdomen and pelvi s is performed from the lung bases to the proximal femora. Images are reviewed in the axial, sagittal , and coronal planes. IV contrast was administered without complication. A dose lowering technique wa s utilized adhering to the principles of ALARA. CT DOSE: 1459.82 mGy.cm FINDINGS: Lung bases: The heart is normal in size and without pericardial effusion. The lung bases are noting m ild bibasilar scarring/atelectasis. Liver: The contrast-enhanced liver is enlarged, measuring 21.2 cm in length. The liver demonstrates d iffusely diminished attenuation consistent with severe hepatic steatosis. Fatty sparing is seen adjac ent to gallbladder fossa. There is no intrahepatic biliary ductal dilatation. The hepatic veins and p ortal veins are patent. A 2.2 cm enhancing lesion in the right lobe as seen on image #90 a second 1.1 cm enhancing lesion is seen in the inferior right lobe on image #161. Gallbladder: The gallbladder is distended but otherwise normal in appearance. Small gallstones are no filipe on image #202. Spleen: Normal in size and attenuation. Pancreas: The pancreas is atrophic. There is nonspecific prominence of the pancreatic duct which becca ures up to 9 mm in diameter. Adrenal glands: Unremarkable. Kidneys: The contrast enhanced kidneys are normal in size and without hydronephrosis. The kidneys enh ance symmetrically. Foci of cortical scarring are noted in the left kidney. A 13 mm cyst is noted in the right upper pole. Additional subcentimeter cortical hypodensities also likely represent cysts but are too small for definitive characterization. Abdominal vasculature: The abdominal aorta is normal in course and caliber noting mild to moderate at herosclerotic calcification. Stomach and bowel: There is a small hiatal hernia. Postoperative change in consistent with a history of Tenisha-en-Y gastric bypass surgery. There is no bowel obstruction. Mild to moderate fecal retention is seen throughout the colon. The appendix is well-visualized and normal. Peritoneum: There is no intraperitoneal free air or abdominal ascites. Lymphadenopathy: None. Pelvic viscera: The bladder is decompressed and grossly unremarkable. The uterus is surgically absent . No adnexal lesion is seen. Skeletal structures: The skeletal structures are osteopenic. There is mild to moderate lumbosacral sp ondylosis. There is a chronic superior endplate compression deformity of L4. No lytic or blastic lesi ons are seen. IMPRESSION: 1. There are no acute infectious or inflammatory findings in the abdomen or pelvis. 2. Hepatomegaly and severe hepatic steatosis. 3. There is postoperative change consistent with a Tenisha-en-Y gastric bypass surgery. No bowel obstruc tion is identified. 4. The pancreas is atrophic and there is nonspecific dilatation of the pancreatic duct. This is of in determinant etiology and significance, but appears to represent a change from the 09/10/2019 examinati on. Nonemergent GI follow-up is recommended. 5. Cholelithiasis within a distended gallbladder. There is no CT evidence of acute cholecystitis. 6. Moderate constipation. 7. There are at least 2 hypervascular hepatic lesions measuring up to 2.2 cm. These likely represent hemangiomas but are incompletely characterized on today's examination. If there is no cancer history these are of low suspicion. If definitive characterization is desired an MRI would likely be required . 8. Additional findings as above. ACT 112: Negative or not required by law. Electronically signed by: Ted Pfeiffer M.D. 05/02/2021 1:05 PM
--- NOTE | 2021-05-02 14:31 | Ultrasound Report ---
ABDOMINAL ULTRASOUND, RIGHT UPPER QUADRANT HISTORY: elevated LFTs. COMPARISON: Abdomen and pelvis CT 05/02/2021. FINDINGS: Pancreas: Obscured by overlying bowel gas. Liver: The liver is echogenic consistent with fatty change. 20 cm in length. Gallbladder: The gallbladder remains distended. No gallbladder wall thickening. There are few small s tones and sludge noted within the gallbladder. CBD: 5 mm. Right kidney: No hydronephrosis. IMPRESSION: 1. Hepatomegaly demonstrating fatty change. 2. A few small stones and sludge within the gallbladder which is distended. However, no gallbladder w all thickening. 3. The pancreas was obscured by overlying bowel gas. ACT 112: Negative or not required by law. Electronically signed by: Angelito Mary M.D. 05/02/2021 2:30 PM
--- NOTE | 2021-05-02 16:33 | History & Physical Report ---
Date of Service May 02, 2021 Assessment & Plan (1) Transaminitis: Plan: - Current etiology unknown, possibly CBD stricture or stone, however painless elevated liver enzymes is concerning for malignancy. Symptom onset seems to correlate with initiation of Exipure supplement, which apparently may cause dizziness due to vasodilation from increased nitric oxide, no documented reports of increased liver enzymes online. - T.bili 3.7, AST 341, ALT 631, alk phos 187. Hepatitis panel pending. - GI consult placed by ED, recommending further imaging with MRCP. Keep NPO after midnight. If MRCP positive plan for ERCP. If MRCP negative, will need OP EUS w/ EDGE with Dr. Foley. (2) Hypothyroidism: Plan: -History of Graves disease and thyroid cancer in 1973, s/p thyroidectomy. -Continue levothyroxine 200 mcgs daily. (3) Hypertension: Plan: - Continue lisinopril 40 mg daily. (4) UTI (urinary tract infection): Plan: - IV Rocephin 2g daily. - Urine culture pending. (5) Depression: Plan: -Continue bupropion 100 mg twice daily and Cymbalta 30 mg daily. (6) Elevated glucose: Plan: - Glucose elevated at 186 on BMP, patient does not carry diagnosis of diabetes. - We will check A1c in AM. - Accu-Cheks with sliding scale if needed. (7) Asthma: Plan: - Albuterol inhaler as needed. (8) Obstructive sleep apnea: Plan: - CPAP at night. Plan: -Admit to [facility]. -SCDs for DVT prophylaxis. -Full code. History of Present Illness Chief Complaint: Elevated LFTs on outpatient labs. Primary Care Provider: Luz Porter MD Patient is a 65-year-old female with past medical history significant for history of hypothyroidism, gastric bypass in 2005, hypertension, depression, morbid obesity, asthma, and obstructive sleep apnea who presents today under the direction of her PCP due to elevated LFTs on outpatient lab work. Patient reports she had been experiencing generalized weakness and fatigue over the past 5-6 weeks, she originally attributed this to depression over family trouble, however over the past two weeks has become out of breath with activities she previously tolerated well, such as carrying laundry basket up the stairs. This prompted her PCP to perform routine lab work on 04/18, which was significant for slightly elevated liver enzymes, otherwise unrevealing. No additional interventions or medications were initiated at that time. On Saturday, 04/28, she experienced a right sided temporal headache with nausea that persisted over the weekend. She has one episode of lightheadedness over the weekend lasting for 30 seconds, otherwise did not experience any LOC, syncope, numbness/tingling, focal weakness, vision loss/changes speech difficulties, or confusion. She had taken Pepto-Bismol for nausea without alleviation. She scheduled an appt with her PCP yesterday for evaluation, who repeated labs, which showed a significant increase in live enzymes from 04/18. In addition to above, patient states she has had brown urine for the past day, light stools for a few weeks, and occasional suprapubic pressure. She notes an unintentional 8 lb weight loss over the past few weeks, but believes she has gained most of it back. Denies fever/chills, night sweats, nausea/vomiting aside from this weekend, decreased appetite, abdominal pain prior to or after meals, jaundic, icterus, pruritus, or edema. ~6 weeks ago, patient ordered a weight loss supplement on the internet, Huodongxing and has been taking one pill daily, otherwise no new medications. Has a distant history of thyroid cancer in 1973 and some great-aunts with breast cancer however no personal or family history of stomach, lung, liver, pancreatic, or colon cancer. Allergies Allergy/AdvReac Type Severity Reaction Status Date / Time Sulfa (Sulfonamide Allergy Unknown Verified 05/02/21 12:08 Antibiotics) Home Medications Medication Instructions Recorded Confirmed Type duloxetine 30 mg capsule,delayed 30 mg PO QAM 09/11/19 05/02/21 History release (Cymbalta) levothyroxine 200 mcg tablet 200 mcg PO DAILYBB 09/11/19 05/02/21 History (Synthroid) lisinopril 40 mg tablet 40 mg PO QAM 09/11/19 05/02/21 History albuterol sulfate 90 mcg/actuation 2 inh INHALATION Q4H PRN 07/18/20 05/02/21 History aerosol inhaler (Ventolin HFA) coenzyme Q10 100 mg capsule (Co 100 mg PO QAM 07/18/20 05/02/21 History Q-10) famotidine 20 mg tablet (Pepcid) 20 mg PO BID 07/18/20 05/02/21 History vitamin B complex 1 tab PO QAM 07/18/20 05/02/21 History conjugated estrogens 0.625 mg/gram 0.625 mg VAGINAL .COMPLEX #30 g 01/30/21 05/02/21 Rx vaginal cream (Premarin) bupropion HCl 100 mg tablet,12 hr 100 mg PO BIDM 05/02/21 05/02/21 History sustained-release ondansetron 8 mg disintegrating 8 mg TRANSLINGUAL Q6H PRN 05/02/21 05/02/21 History tablet Past Med/Surg History Medical History (Updated 05/03/21 @ 09:09 by Elton Apodaca) Asthma Depression Hypertension Hypothyroidism Obstructive sleep apnea Recurrent UTI Surgical History H/O gastric bypass H/O sinus surgery H/O: hysterectomy History of surgery ligation of oviducts removal of thyroid Hx of tonsillectomy Family History Brother Diabetes Social History Smoking Status: Never smoker Hx Alcohol Use: No Hx Substance Use: No Preferred Language: Slovak Communication Ability: Effective 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 Beliefs That Will Affect Care: None marital status: Current Living Situation: Spouse Other Information That Helps Us Care for You: No Feels Safe at Home: Yes Safety Concerns: Feels Safe At This Time Assistive Devices: Glasses Review of Systems Review of Systems: Constitutional: No fever, sweats or chills Eyes: No diplopia, no worsening or blurred vision ENT: normal hearing, no trouble swallowing Respiratory: No cough, sputum, dyspnea at rest or on exertion Cardiovascular: No chest pain, tightness or palpitations Abdomen: No pain, nausea, vomiting, diarrhea or constipation Musculoskeletal: No joint pain, calf pain, swelling Neurologic: No weakness, numbness/tingling, or balance problems Psychiatric: No anxiety or depression Skin: No rash or itch Physical Exam Physical Exam: General: awake, alert, no apparent distress Head: Normocephalic, atraumatic ENT: No icterus, PERRL, EOMI, no pharyngeal exudate, mucous membranes moist Chest: Clear to auscultation, on room air, no adventitious breath sounds Cardiac: Regular rate and rhythm, no murmur, no JVD, normal peripheral pulses, good capillary refill Abdominal: NABS x 4 quadrants, soft, nontender to palpation, no rebound, guarding or tenderness Extremities: Normal inspection, no peripheral edema or erythema, calfs nonten bradley to palpation Psych: Normal mood and affect Neuro: AAO x 3, strength intact bilaterally and rated 5/5, no motor deficits, speech is clear, no peripheral sensory deficits Skin: no jaundice, rash, or erythema Results & Data Results & Data ([facility]) Vital Signs (Past 12 Hours) Vital Signs Temp Pulse Pulse Resp BP BP Pulse Ox 05/02/21 15:30 67 19 95 05/02/21 15:00 67 20 95 05/02/21 14:40 67 19 151/79 H 05/02/21 13:30 64 16 96 05/02/21 13:00 62 15 96 05/02/21 12:30 64 18 96 05/02/21 12:00 66 19 96 05/02/21 11:42 64 65 20 139/84 97 05/02/21 11:31 68 19 139/84 95 05/02/21 10:36 36.6 C 78 20 143/84 H 95 Laboratory Results Abnormal lab results 05/02/21 05/02/21 05/02/21 Range/Units 11:30 11:36 11:36 RBC 4.01 L (4.2-5.4) M/uL MPV 11.3 H (7.4-10.4) fL Lymph # (Auto) 0.98 L (1.2-3.4) K/uL Maverick # (Auto) 0.66 H (0.11-0.59) K/uL Glucose 186 H (70-99(Fasting)) mg/dl Total Bilirubin 3.7 H (0.2-1.0) mg/dl AST 341 H (13-39) U/L ALT 631 H (7-52) U/L Alkaline Phosphatase 187 H (34-104) U/L Urine Appearance Cloudy A (Clear) Ur Specific Naylor 1.032 H (1.000-1.030) Urine Protein 1+ H (Negative) Urine Glucose (UA) 2+ H (Negative) Urine Ketones Trace H (Negative) Urine Blood 1+ H (Negative) Urine Nitrite Positive A (Negative) Urine Bilirubin 3+ H (Negative) Ur Leukocyte Esterase 1+ H (Negative) Urine WBC (Auto) 10-30 H (0-5) /hpf U Hyaline Cast (Auto) 5-10 H (0-5) /lpf Urine Bacteria (Auto) 4+ H (Negative) Diagnostic Findings Abdomen/Pelvis CT 05/02/21 11:27 CT SCAN OF THE ABDOMEN AND PELVIS WITH IV CONTRAST CLINICAL HISTORY: Nausea. Elevated hepatic transaminases. COMPARISON STUDY: Renal ultrasound dated 02/14/2021. Abdominal CT dated 08/19. TECHNIQUE: Following the IV administration of 94 cc of Optiray 320, CT scan of the abdomen and pelvis is performed from the lung bases to the proximal femora. Images are reviewed in the axial, sagittal, and coronal planes. IV contrast was administered without complication. A dose lowering technique was utilized adhering to the principles of ALARA. CT DOSE: 1459.82 mGy.cm FINDINGS: Lung bases: The heart is normal in size and without pericardial effusion. The lung bases are noting mild bibasilar scarring/atelectasis. Liver: The contrast-enhanced liver is enlarged, measuring 21.2 cm in length. The liver demonstrates diffusely diminished attenuation consistent with severe hepatic steatosis. Fatty sparing is seen adjacent to gallbladder fossa. There is no intrahepatic biliary ductal dilatation. The hepatic veins and portal veins are patent. A 2.2 cm enhancing lesion in the right lobe as seen on image #90 a second 1.1 cm enhancing lesion is seen in the inferior right lobe on image #161. Gallbladder: The gallbladder is distended but otherwise normal in appearance. Small gallstones are noted on image #202. Spleen: Normal in size and attenuation. Pancreas: The pancreas is atrophic. There is nonspecific prominence of the pancreatic duct which measures up to 9 mm in diameter. Adrenal glands: Unremarkable. Kidneys: The contrast enhanced kidneys are normal in size and without hydronephrosis. The kidneys enhance symmetrically. Foci of cortical scarring are noted in the left kidney. A 13 mm cyst is noted in the right upper pole. Additional subcentimeter cortical hypodensities also likely represent cysts but are too small for definitive characterization. Abdominal vasculature: The abdominal aorta is normal in course and caliber noting mild to moderate atherosclerotic calcification. Stomach and bowel: There is a small hiatal hernia. Postoperative change in consistent with a history of Tenisha-en-Y gastric bypass surgery. There is no bowel obstruction. Mild to moderate fecal retention is seen throughout the colon. The appendix is well-visualized and normal. Peritoneum: There is no intraperitoneal free air or abdominal ascites. Lymphadenopathy: None. Pelvic viscera: The bladder is decompressed and grossly unremarkable. The uterus is surgically absent. No adnexal lesion is seen. Skeletal structures: The skeletal structures are osteopenic. There is mild to moderate lumbosacral spondylosis. There is a chronic superior endplate compression deformity of L4. No lytic or blastic lesions are seen. IMPRESSION: 1. There are no acute infectious or inflammatory findings in the abdomen or pelvis. 2. Hepatomegaly and severe hepatic steatosis. 3. There is postoperative change consistent with a Tenisha-en-Y gastric bypass surgery. No bowel obstruction is identified. 4. The pancreas is atrophic and there is nonspecific dilatation of the pancreatic duct. This is of indeterminant etiology and significance, but appears to represent a change from the 09/10/2019 examination. Nonemergent GI follow-up is recommended. 5. Cholelithiasis within a distended gallbladder. There is no CT evidence of acute cholecystitis. 6. Moderate constipation. 7. There are at least 2 hypervascular hepatic lesions measuring up to 2.2 cm. These likely represent hemangiomas but are incompletely characterized on today's examination. If there is no cancer history these are of low suspicion. If definitive characterization is desired an MRI would likely be required. 8. Additional findings as above. ACT 112: Negative or not required by law. Electronically signed by: Ted Pfeiffer M.D. 05/02/2021 1:05 PM Gallbladder Ultrasound 05/02/21 12:46 ABDOMINAL ULTRASOUND, RIGHT UPPER QUADRANT HISTORY: elevated LFTs. COMPARISON: Abdomen and pelvis CT 05/02/2021. FINDINGS: Pancreas: Obscured by overlying bowel gas. Liver: The liver is echogenic consistent with fatty change. 20 cm in length. Gallbladder: The gallbladder remains distended. No gallbladder wall thickening. There are few small stones and sludge noted within the gallbladder. CBD: 5 mm. Right kidney: No hydronephrosis. IMPRESSION: 1. Hepatomegaly demonstrating fatty change. 2. A few small stones and sludge within the gallbladder which is distended. However, no gallbladder wall thickening. 3. The pancreas was obscured by overlying bowel gas. ECG Additional Comments: Normal sinus rhythm Normal ECG When compared with ECG of 11-SEP-2019 07:14, No s ignificant change was found. Code Status & VTE Plan Code Status Full code. Supervising Physician Co-Signing Physician Notes Attending Attestation and Admit Note - Pt seen/examined, chart reviewed, care plan d/w PAMELA Alvarado. I agree with the galan components of her admission documentation. Pleasant 65yo female with h/o gastric bypass surgery, acquired hypothyroidism, HTN, and obesity who presents with several weeks of fatigue, dyspnea on exertion (but now resolved), and weight loss. No abd pain, nausea or emesis. Saw PCP for above - had routine blood work showing abnormal LFTs. This was sometime in the last couple of weeks. Upon recheck this am the LFTs were still high and she was advised to come to the ER for evaluation. PMH/PSH/allergies/meds/sochx/famhx - reviewed With respect to recent RESENDIZ -- she reports NO leg pain, swelling or cramps. Has had restless legs symptoms recently but this is chronic. VSS, afebrile gen - NAD, obese eyes - no icterus neck - no JVD heart - RRR, s1 s2 lungs - CTA b/l abd - soft, NT, ND, BS+, no HSM ext - no edema, pulses 2+ b/l skin - no jaundice labs reviewed - LFTs elevated including t.bili imaging reviewed A/P: 1. abnormal LFTs 2. gallstones but no evidence of radiographic cholecystitis 3. weight loss 4. morbid obesity 5. gastric bypass status 6. hypothyroidism 7. elevated glucose 8. probable UTI #1, #3 - especially with no abdominal pain - is concerning for malignancy, especially of the pancreas. MRCP tonight. GI has been consulted. pending the MRCP she may need ERCP. check a TSH. agree with a1c to r/o DM. repeat LFTs am. agree with rocephin for probable UTI. Elton Apodaca MD PG Care Time/CCT Total # of Minutes Spent Total Time Spent with Patient: Total time spent is greater than 50% in coordination of care (as documented) at patient's floor/unit and/or counseling patient: Coding Level of Care Code 63399 Initial Inpt Care Lvl 3 Diagnoses Transaminitis R74.01 Hypothyroidism E03.9 Hypertension I10 Depression F32.A UTI (urinary tract infection) N39.0 Elevated glucose R73.09 Obstructive sleep apnea G47.33 Asthma J45.909
--- NOTE | 2021-05-02 17:00 | Communication Note ---
Date of Service: May 02, 2021 GI was contacted regarding current imaging and labs. Given dilated CBD and elevated LFTs, recommend further imaging with MRCP. Keep NPO after midnight. If MRCP positive plan for ERCP. If MRCP negative, will need OP EUS w/ EDGE with Dr. Foley.
--- NOTE | 2021-05-02 17:26 | XRay Report ---
ORBIT RADIOGRAPHS 3 VIEWS HISTORY: pre-MRI screening. COMPARISON: None. FINDINGS: There are no radiopaque foreign bodies identified within the orbits. IMPRESSION: No radiopaque foreign bodies identified within the orbits. ACT 112: Negative or not required by law. Electronically signed by: Angelito Mary M.D. 05/02/2021 5:25 PM
[2021-05-02] MEDS ORDERED: cefTRIAXone SODIUM 2,000 MG/70 ML BAG IV STA (17:47)
[2021-05-02] MEDS ORDERED: LORazepam 0.5 MG TAB PO ONE ×2 (17:56→21:30)
[2021-05-02] MEDS ORDERED: ONDANSETRON INJ 2 MG/ML 2 ML VIAL IV PRN (21:05)
[2021-05-02] MEDS ORDERED: ALBUTEROL HFA 8 GM INHALER INH PRN (21:05)
[2021-05-02] MEDS ORDERED: POLYETHYLENE (MIRALAX) 17 GM PACK PO PRN (21:05)
[2021-05-02] MEDS ORDERED: PREMARIN VAG CRM 14 APPLN/30 GM TUBE PV SCH (21:05)
[2021-05-02] MEDS ORDERED: ENOXAPARIN INJ 40 MG/0.4 ML SYR SQ SCH (21:30)
[2021-05-02] MEDS ORDERED: INSULIN ASPART PER UNIT SC SCH (21:30)
[2021-05-02] MEDS: FAMOTIDINE 20 MG TAB PO SCH (22:50)
--- NOTE | 2021-05-02 23:13 | Surgery Consultation ---
Date of Consultation May 02, 2021 Assessment & Plan (1) Cholelithiasis: Due to the patient's transaminitis and gallstones she has been admitted to the hospital with plans to proceed as follows: MRCP has been ordered and is pending. Pending results of this gastroenterology may consider an ERCP. If ERCP is to be performed this will have to be laparoscopically assisted as patient has had a Tenisha-en-Y gastric bypass If ERCP is required (as noted above we performed a laparoscopic manner) neurosurgery will assist with this and plan on proceeding with cholecystectomy following the endoscopic portion of this case. We will certainly wait for the results of the MRCP and proceed accordingly I described the procedure with the patient. Additional recommendations will be forthcoming based on findings of her MRCP, and any procedures performed. History of Present Illness Attending Physician: Elton Apodaca History of Present Illness This is a 65-year-old female who presented to [facility] emergency department at the recommendation of her primary care physician secondary to elevated LFTs. The patient says that she is feeling lethargic for several weeks. She says that she attributed this to family stress but her symptoms did not baljeet so she finally saw her PCP where she was noted to have elevated LFTs. I asked the patient about additional symptoms and she has had episodes of nausea without vomiting. She specifically denies any abdominal pain or diarrhea. She denies any recent unexplained weight loss. She denies any yellow discoloration of her eyes but did feel as though her skin may have been somewhat jaundiced. Patient also notes that over the past several days she has noted that her urine is very concentrated with a orange/brown color and a strong odor. I question the patient about prior abdominal surgeries and she did have a Tenisha-en-Y gastric bypass. In addition the patient has had a laparoscopic tubal ligation and an abdominal hysterectomy. Patient says that she is unsure why she required a hysterectomy but underwent this procedure at the recommendation of her physicians. Since admission to the hospital the patient has had labs and imaging which independent reviewed. CBC revealed white blood cell count was normal. Her hemoglobin, hematocrit, and platelet count were also normal. Coagulation studies were noted to be normal. Chemistry profile showed sodium, potassium, BUN, and creatinine were all normal. Patient did have elevation of her total bilirubin at 3.7. Her AST and ALT were 341 and 631 respectively, both elevated values. Alkaline phosphatase was elevated at 187. There is no elevation noted of lipase. Urinalysis revealed 10-30 white blood cells per high-power field along with 1+ leukocyte esterase and positive for nitrites. There is also 4+ bacteria noted on this study. Hepatitis profile has been sent which is pending. A Covid test is noted be negative. Imaging has included a CT scan of the abdomen and pelvis that showed hepatomegaly with some hepatic steatosis. Cholelithiasis with a distended gallbladder was noted. 2 hypervascular hepatic lesions were noted on this study. A gallbladder ultrasound showed some gallstones with sludge within the gallbladder which was distended. There is no gallbladder wall thickening noted. An MRCP was performed which is pending. At the time of my interview the patient is resting comfortably in bed. Allergies Allergy/AdvReac Type Severity Reaction Status Date / Time Sulfa (Sulfonamide Allergy Unknown Verified 05/02/21 12:08 Antibiotics) Home Medications Medication Instructions Recorded Confirmed Type duloxetine 30 mg capsule,delayed 30 mg PO QAM 09/11/19 05/02/21 History release (Cymbalta) levothyroxine 200 mcg tablet 200 mcg PO DAILYBB 09/11/19 05/02/21 History (Synthroid) lisinopril 40 mg tablet 40 mg PO QAM 09/11/19 05/02/21 History albuterol sulfate 90 mcg/actuation 2 inh INHALATION Q4H PRN 07/18/20 05/02/21 History aerosol inhaler (Ventolin HFA) coenzyme Q10 100 mg capsule (Co 100 mg PO QAM 07/18/20 05/02/21 History Q-10) famotidine 20 mg tablet (Pepcid) 20 mg PO BID 07/18/20 05/02/21 History vitamin B complex 1 tab PO QAM 07/18/20 05/02/21 History conjugated estrogens 0.625 mg/gram 0.625 mg VAGINAL .COMPLEX #30 g 01/30/21 05/02/21 Rx vaginal cream (Premarin) bupropion HCl 100 mg tablet,12 hr 100 mg PO BIDM 05/02/21 05/02/21 History sustained-release ondansetron 8 mg disintegrating 8 mg TRANSLINGUAL Q6H PRN 05/02/21 05/02/21 History tablet Patient History Medical History Hypothyroidism Surgical History H/O gastric bypass H/O sinus surgery H/O: hysterectomy History of surgery ligation of oviducts removal of thyroid Hx of tonsillectomy Family History Brother Diabetes Social History Smoking Status: Never smoker Hx Alcohol Use: No Hx Substance Use: No Preferred Language: Syriac Communication Ability: Effective 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 Beliefs That Will Affect Care: None marital status: Current Living Situation: Spouse Other Information That Helps Us Care for You: No Feels Safe at Home: Yes Safety Concerns: Feels Safe At This Time Assistive Devices: None Review of Systems Constitutional: no fever and no chills Eyes: no diplopia Ear, Nose, Mouth, Throat: no ear pain Respiratory: no cough and no dyspnea Cardiovascular: no chest pain Gastrointestinal: + nausea; no abdominal pain, no vomiting and no diarrhea/loose stools Genitourinary: as per Subjective / HPI; no dysuria Musculoskeletal: no back pain Integumentary: + yellowing of the skin; no rash Neurologic: no localized weakness Physical Exam Constitutional: WD/WN, vitals as above Eyes: + anicteric sclerae ENMT: Ears: no hearing impairment Sublingual jaundice is not noted Neck: trachea midline Respiratory: normal respiratory effort; no respiratory distress and no labored breathing Cardiovascular: Rate/Rhythm: regular rate and regular rhythm Gastrointestinal (Abdomen): Soft, nontender, nondistended. Patient did note some slight pain with palpation in the right upper quadrant. Musculoskeletal: No calf tenderness Skin: normal turgor Neurologic: moves all extremities Psychiatric: A+Ox3, euthymic affect Results & Data ([facility]) Vital Signs (Past 12 Hours) Vital Signs Pulse Pulse Resp BP BP Pulse Ox 05/02/21 20:28 82 18 123/73 94 05/02/21 19:00 18 153/88 H 94 05/02/21 18:30 94 05/02/21 18:11 97 05/02/21 16:30 67 21 95 05/02/21 16:00 64 18 94 05/02/21 15:30 67 19 95 05/02/21 15:00 67 20 95 05/02/21 14:40 67 19 151/79 H 05/02/21 13:30 64 16 96 05/02/21 13:00 62 15 96 05/02/21 12:30 64 18 96 05/02/21 12:00 66 19 96 05/02/21 11:42 64 65 20 139/84 97 05/02/21 11:31 68 19 139/84 95 PG Care Time/CCT Total # of Minutes Spent Total Time Spent with Patient: Total time spent is greater than 50% in coordination of care (as documented) at patient's floor/unit and/or counseling patient: Coding Level of Care Code 88169 Inpt Consult Level 5 Diagnoses Cholelithiasis K80.20
[2021-05-02] MEDS: LACTATED RINGER'S 1,000 ML IV SCH (23:37)
[2021-05-03 05:21] LABS: HBSAG NON-REACTIVE (NON-REACTIVE); Hepatitis A Antibody IgM NON-REACTIVE (NON-REACTIVE); Hepatitis B Core Antibody IgM NON-REACTIVE (NON-REACTIVE)
[2021-05-03] MEDS: INSULIN ASPART PER UNIT SC SCH ×2 (06:00→13:03)
[2021-05-03] MEDS ORDERED: LEVOTHYROXINE SODIUM 200 MCG TABLET PO SCH (06:30)
--- NOTE | 2021-05-03 06:35 | Electrocardiogram Report ---
Test Reason : Blood Pressure : / mmHG Vent. Rate : 062 BPM Atrial Rate : 062 BPM P-R Int : 158 ms QRS Dur : 100 ms QT Int : 414 ms P-R-T Axes : 065 028 056 degrees QTc Int : 420 ms Poor data quality, interpretation may be adversely affected Normal sinus rhythm Normal ECG When compared with ECG of 11-SEP-2019 07:14, No significant change was found Confirmed by Hunter Neff ([id number]) on 05/03/2021 6:35:27 AM Referred By: Luz Porter Confirmed By:Hunter Neff
[2021-05-03 06:38] LABS: Basophils # (auto) 0.04 K/uL (0-0.2); Basophils % (auto) 0.9 %; Eosinophils % (auto) 4.3 %; Hematocrit (blood only) 36.2 % (37-47); Hemoglobin 12.1 g/dL (12.0-16.0); Immature Granulocytes # (auto) 0.02 K/uL (0.00-0.02); Immature Granulocytes % (auto) 0.4 %; Lymphocytes # (auto) 1.07 K/uL (1.2-3.4); Lymphocytes % (auto) 22.9 %; Mean Corpuscular Hemoglobin 32.8 pg (25-34); Mean Corpuscular Hgb Conc 33.4 g/dL (32-36); Mean Corpuscular Volume 98.1 fL (80-100); Mean Platelet Volume 11.4 fL (7.4-10.4); Monocytes # (auto) 0.59 K/uL (0.11-0.59); Monocytes % (auto) 12.6 %; Neutrophils # (auto) 2.76 K/uL (1.4-6.5); Neutrophils % (auto) 58.9 %; Platelet Count 156 K/uL (130-400); RDW Coefficient of Variation 13.1 % (11.5-14.5); RDW Standard Deviation 46.9 fL (36.4-46.3); Red Blood Count 3.69 M/uL (4.2-5.4); White Blood Count 4.68 K/uL (4.8-10.8)
[2021-05-03 07:07] LABS: Albumin Globulin Ratio 1.4 (0.9-2); Albumin Level 3.5 gm/dl (3.4-5.0); BUN Creatinine Ratio 12.5 (10-20); Bilirubin,Total 3.6 mg/dl (0.2-1.0); Calcium 8.7 mg/dl (8.5-10.1); Creatinine Clr Calc Pharmacy 100.2 ml/min; Est GFR (African American) 107.8 ml/min; Estimated Average Glucose 163 mg/dl; Globulin 2.5 gm/dl (2.5-4.0); Hemoglobin A1C 7.3 % (4.5-5.6); Potassium 3.5 mmol/L (3.5-5.1)
--- NOTE | 2021-05-03 08:26 | Magnetic Resonance Report ---
MRCP CLINICAL HISTORY: Transaminitis. TECHNIQUE: Utilizing a 1.5 Deborah magnet and dedicated coil, multiplanar, multiecho imaging of the [facility] abdomen was performed utilizing heavily T2 weighted pulsing sequences without IV contrast. COMPARISON STUDY: CT of the abdomen and pelvis and right upper quadrant ultrasound May 02, 2021. FINDINGS: Hepatic steatosis is better depicted on CT of May 02, 2021. The liver is enlarged. A 1.8 cm T2 hyperintense segment 7 hepatic lesion is noted. There is also 0.8 cm T2 hyperintense segment 6 hepatic lesion. Note is made of mild intra and extrahepatic biliary ductal dilatation. The common james e duct measures 7 mm in caliber. There is severe narrowing of the distal common bile duct at the leve l of the pancreatic head shown best on coronal 3-D MRCP sequence image 95 of 149. No common bile duct calculi identified. In addition, note is made of abrupt caliber change of the pancreatic duct at the level of the pancreatic head. Pancreatic duct measures 7 mm in caliber. Note is made of an additiona l site of caliber change of the pancreatic duct at the level of the pancreatic body. Although subopti adalberto assessed on this MRCP study, there is a possible pancreatic head mass which measures approximat agnes 2.1 cm. Pancreatic glandular atrophy is noted. Numerous dilated side branches or small side branc h IPMNs are present. No peripancreatic infiltration or fluid is present. Gallbladder is moderately di stended. There are small gallstones within the gallbladder. There is no hydronephrosis. The spleen, a drenal glands are unremarkable. Small T2 hyperintense bilateral renal lesions probably reflect cysts. Caliber and wall thickness of visualized small and large bowel are normal. Postoperative findings co nsistent with Tenisha-en-Y gastric bypass are noted. IMPRESSION: 1. Biliary and pancreatic ductal dilatation with pancreatic glandular atrophy. Caliber change of the common bile duct and main pancreatic duct at the level of the pancreatic head. In addition, caliber c hange of the pancreatic duct within the pancreatic body. Possible 2.1 cm pancreatic head mass, subopt imally assessed on this exam. While not definitive, these findings are suspicious for a pancreatic ne oplasm. GI consultation for consideration for EUS/ERCP is recommended. 2. Cholelithiasis. Gallbladder distention. No pericholecystic fluid or infiltration. 3. Hepatic steatosis and hepatomegaly. 4. Two T2 hyperintense right hepatic lobe lesions. Although suboptimally assessed on this exam, these favor hemangiomas. ACT 112: Positive. There are findings on this exam that require communication between the performing entity and the patient following Patient Test Result Information Act ([place] Act 112) guidelines. Electronically signed by: Anup Harrison M.D. 05/03/2021 8:23 AM
[2021-05-03] MEDS ORDERED: DULoxetine HCL 30 MG CAP PO SCH (09:00)
[2021-05-03] MEDS ORDERED: lisinopril 40 MG TAB PO SCH (09:00)
[2021-05-03] MEDS ORDERED: VITAMIN B COMPLEX TAB PO SCH (09:00)
--- NOTE | 2021-05-03 09:01 | Gastrointestinal Consultation ---
Date of Consultation May 03, 2021 Assessment & Plan (1) Transaminitis: 65 year old female with history of RYGB admitted w/ elevated LFTs, weight loss and generalized fatigue/weakness, imaging concerning for possible pancreatic head lesion with double duct sign. NPO Plan for laparoscopy assisted endoscopic evaluation - will discuss with Dr. Foley and general surgery Thank you for allowing us to participate in the care of this patient. Please call with any acute changes, questions or concerns. Please see addendum below with additional recommendation from my supervising physician. Supervising Physician Co-Signing Physician Notes consult for abnl lft's PE - tearful as she was told she has a pancreatic mass, HEENT- no scleral icterus, Pulm - normal respirations, Abd - obese soft Imaging reviewed, mrcp with panc head mass with panc ductal dilation. Agree with abx, outpt EDGE Procedure on Saturday at [place] is being arranged. Ok to dc home. History of Present Illness Reason for Consultation: elevated LFTs Requesting Physician: Constanza Attending Physician: Elton Apodaca History of Present Illness 65 year old female with history of hypothyroidism, gastric bypass in 2005, hypertension, depression, morbid obesity, asthma, and obstructive sleep apnea who presents today under the direction of her PCP due to elevated LFTs - admitted for further workup. Pt notes that for the last 4-6 weeks she has had generalized symptoms. Weakness, fatigue, headaches and decreased appetite. This was associated with a 10 lb unintinal weight loss. She notes she has had some generalized abd discomfort and nausea but this was not severe, self limiting and intermittent. MRCP: Biliary and pancreatic ductal dilatation with pancreatic glandular atrophy. Caliber change of the common bile duct and main pancreatic duct at the level of the pancreatic head. In addition, caliber change of the pancreatic duct within the pancreatic body. Possible 2.1 cm pancreatic head mass, suboptimally assessed on this exam. While not definitive, these findings are suspicious for a pancreatic neoplasm. GI consultation for consideration for EUS/ERCP is recommended.Cholelithiasis. Gallbladder distention. No pericholecystic fluid or infiltration. Hepatic steatosis and hepatomegaly. ABD US: . Hepatomegaly demonstrating fatty change.A few small stones and sludge within the gallbladder which is distended. However, no gallbladder wall thickening.. The pancreas was obscured by overlying bowel gas. CTAP; There are no acute infectious or inflammatory findings in the abdomen or pelvis.Hepatomegaly and severe hepatic steatosis.There is postoperative change consistent with a Tenisha-en-Y gastric bypass surgery. No bowel obstruction is identified.The pancreas is atrophic and there is nonspecific dilatation of the pancreatic duct. This is of indeterminant etiology and significance, but appears to represent a change from the 09/10/2019 examination. Nonemergent GI follow-up is recommended.Cholelithiasis within a distended gallbladder. There is no CT evidence of acute cholecystitis.Moderate constipation. There are at least 2 hypervascular hepatic lesions measuring up to 2.2 cm. These likely represent hemangiomas but are incompletely characterized on today's examination. If there is no cancer history these are of low suspicion. If definitive characterization is desired an MRI would likely be required. Allergies Allergy/AdvReac Type Severity Reaction Status Date / Time Sulfa (Sulfonamide Allergy Unknown Verified 05/02/21 12:08 Antibiotics) Home Medications Medication Instructions Recorded Confirmed Type duloxetine 30 mg capsule,delayed 30 mg PO QAM 09/11/19 05/02/21 History release (Cymbalta) levothyroxine 200 mcg tablet 200 mcg PO DAILYBB 09/11/19 05/02/21 History (Synthroid) lisinopril 40 mg tablet 40 mg PO QAM 09/11/19 05/02/21 History albuterol sulfate 90 mcg/actuation 2 inh INHALATION Q4H PRN 07/18/20 05/02/21 History aerosol inhaler (Ventolin HFA) coenzyme Q10 100 mg capsule (Co 100 mg PO QAM 07/18/20 05/02/21 History Q-10) famotidine 20 mg tablet (Pepcid) 20 mg PO BID 07/18/20 05/02/21 History vitamin B complex 1 tab PO QAM 07/18/20 05/02/21 History conjugated estrogens 0.625 mg/gram 0.625 mg VAGINAL .COMPLEX #30 g 01/30/21 05/02/21 Rx vaginal cream (Premarin) bupropion HCl 100 mg tablet,12 hr 100 mg PO BIDM 05/02/21 05/02/21 History sustained-release ondansetron 8 mg disintegrating 8 mg TRANSLINGUAL Q6H PRN 05/02/21 05/02/21 History tablet Patient History Medical History (Updated 05/03/21 @ 09:09 by Elton Apodaca) Asthma Depression Hypertension Hypothyroidism Obstructive sleep apnea Recurrent UTI Surgical History H/O gastric bypass H/O sinus surgery H/O: hysterectomy History of surgery ligation of oviducts removal of thyroid Hx of tonsillectomy Family History Brother Diabetes Social History Smoking Status: Never smoker Hx Alcohol Use: No Hx Substance Use: No Preferred Language: Pashto Communication Ability: Effective Right Of Way Supervisor Required: No Beliefs That Will Affect Care: None marital status: Current Living Situation: Spouse Other Information That Helps Us Care for You: No Feels Safe at Home: Yes Safety Concerns: Feels Safe At This Time Assistive Devices: Glasses Review of Systems Review of Systems: All systems reviewed & are unremarkable except as noted in HPI & below Physical Exam Constitutional: WD/WN, vitals as above Neck: trachea midline, no thyromegaly Respiratory: normal respiratory effort, lungs clear to auscultation Cardiovascular: RRR, no murmur, no edema Gastrointestinal (Abdomen): normal bowel sounds, soft, nontender, no hepatosplenomegaly Skin: + jaundice Results & Data ([facility]) Vital Signs (Past 12 Hours) Vital Signs Temp Pulse Pulse Resp BP Pulse Ox 05/03/21 07:56 36.6 C 65 16 135/82 94 05/03/21 03:05 65 20 95 05/03/21 00:40 66 15 93 Laboratory Results 05/03/21 05/03/21 05/03/21 Range/Units 06:11 06:11 06:11 WBC 4.68 L (4.8-10.8) K/uL RBC 3.69 L (4.2-5.4) M/uL Hgb 12.1 (12.0-16.0) g/dL Hct 36.2 L (37-47) % MCV 98.1 (80-100) fL MCH 32.8 (25-34) pg MCHC 33.4 (32-36) g/dL RDW Std Deviation 46.9 H (36.4-46.3) fL RDW Coeff of Dl 13.1 (11.5-14.5) % Plt Count 156 (130-400) K/uL MPV 11.4 H (7.4-10.4) fL Immature Gran % (Auto) 0.4 % Neut % (Auto) 58.9 % Lymph % (Auto) 22.9 % [place] % (Auto) 12.6 % Eos % (Auto) 4.3 % Baso % (Auto) 0.9 % Neut # (Auto) 2.76 (1.4-6.5) K/uL Lymph # (Auto) 1.07 L (1.2-3.4) K/uL [place] # (Auto) 0.59 (0.11-0.59) K/uL Eos # (Auto) 0.20 (0-0.5) K/uL Baso # (Auto) 0.04 (0-0.2) K/uL Immature Gran # (Auto) 0.02 (0.00-0.02) K/uL PT (9.0-12.0) Seconds INR (0.9-1.1) Sodium 138 (136-145) mmol/L Potassium 3.5 (3.5-5.1) mmol/L Chloride 103 (98-107) mmol/L Carbon Dioxide 29 (21-32) mmol/L Anion Gap 6 (3-11) BUN 8 (6-23) mg/dl Creatinine 0.64 (0.6-1.2) mg/dl Est Cr Clr Drug Dosing 100.2 ml/min Est GFR ( Amer) 107.8 ml/min Est GFR (Non-Af Amer) 93.0 ml/min BUN/Creatinine Ratio 12.5 (10-20) Glucose 130 H (70-99(Fasting)) mg/dl POC Glucose (70-99) mg/dl Estimat Average Glucose 163 mg/dl Hemoglobin A1c 7.3 H (4.5-5.6) % Calcium 8.7 (8.5-10.1) mg/dl Total Bilirubin 3.6 H (0.2-1.0) mg/dl AST 259 H (13-39) U/L ALT 468 H (7-52) U/L Alkaline Phosphatase 171 H (34-104) U/L Troponin I (0-0.04) ng/ml Total Protein 6.0 (6.0-8.3) gm/dl Albumin 3.5 (3.4-5.0) gm/dl Globulin 2.5 (2.5-4.0) gm/dl Albumin/Globulin Ratio 1.4 (0.9-2) Lipase (11-82) U/L Urine Color Urine Appearance (Clear) Urine pH (4.5-7.5) Ur Specific [place] (1.000-1.030) Urine Protein (Negative) Urine Glucose (UA) (Negative) Urine Ketones (Negative) Urine Blood (Negative) Urine Nitrite (Negative) Urine Bilirubin (Negative) Urine Urobilinogen (Negative) Ur Leukocyte Esterase (Negative) Urine WBC (Auto) (0-5) /hpf Urine RBC (Auto) (0-4) /hpf U Hyaline Cast (Auto) (0-5) /lpf U Epithel Cells (Auto) (0-5) /lpf Urine Bacteria (Auto) (Negative) Urine Yeast Hepatitis A IgM Ab (NON-REACTIVE) Hep Bs Antigen (NON-REACTIVE) Hep B Core IgM Ab (NON-REACTIVE) Hepatitis C Ab (EIA) (NON-REACTIVE) Hep C Ab Signal/Cutoff (<1.00) SARS-CoV-2, RNA, NAAT (NEGATIVE) 05/03/21 05/02/21 05/02/21 Range/Units 05:56 21:22 16:11 WBC (4.8-10.8) K/uL RBC (4.2-5.4) M/uL Hgb (12.0-16.0) g/dL Hct (37-47) % MCV (80-100) fL MCH (25-34) pg MCHC (32-36) g/dL RDW Std Deviation (36.4-46.3) fL RDW Coeff of Dl (11.5-14.5) % Plt Count (130-400) K/uL MPV (7.4-10.4) fL Immature Gran % (Auto) % Neut % (Auto) % Lymph % (Auto) % [place] % (Auto) % Eos % (Auto) % Baso % (Auto) % Neut # (Auto) (1.4-6.5) K/uL Lymph # (Auto) (1.2-3.4) K/uL [place] # (Auto) (0.11-0.59) K/uL Eos # (Auto) (0-0.5) K/uL Baso # (Auto) (0-0.2) K/uL Immature Gran # (Auto) (0.00-0.02) K/uL PT (9.0-12.0) Seconds INR (0.9-1.1) Sodium (136-145) mmol/L Potassium (3.5-5.1) mmol/L Chloride (98-107) mmol/L Carbon Dioxide (21-32) mmol/L Anion Gap (3-11) BUN (6-23) mg/dl Creatinine (0.6-1.2) mg/dl Est Cr Clr Drug Dosing ml/min Est GFR ( Amer) ml/min Est GFR (Non-Af Amer) ml/min BUN/Creatinine Ratio (10-20) Glucose (70-99(Fasting)) mg/dl POC Glucose 121 H 159 H (70-99) mg/dl Estimat Average Glucose mg/dl Hemoglobin A1c (4.5-5.6) % Calcium (8.5-10.1) mg/dl Total Bilirubin (0.2-1.0) mg/dl AST (13-39) U/L ALT (7-52) U/L Alkaline Phosphatase (34-104) U/L Troponin I (0-0.04) ng/ml Total Protein (6.0-8.3) gm/dl Albumin (3.4-5.0) gm/dl Globulin (2.5-4.0) gm/dl Albumin/Globulin Ratio (0.9-2) Lipase (11-82) U/L Urine Color Urine Appearance (Clear) Urine pH (4.5-7.5) Ur Specific [place] (1.000-1.030) Urine Protein (Negative) Urine Glucose (UA) (Negative) Urine Ketones (Negative) Urine Blood (Negative) Urine Nitrite (Negative) Urine Bilirubin (Negative) Urine Urobilinogen (Negative) Ur Leukocyte Esterase (Negative) Urine WBC (Auto) (0-5) /hpf Urine RBC (Auto) (0-4) /hpf U Hyaline Cast (Auto) (0-5) /lpf U Epithel Cells (Auto) (0-5) /lpf Urine Bacteria (Auto) (Negative) Urine Yeast Hepatitis A IgM Ab (NON-REACTIVE) Hep Bs Antigen (NON-REACTIVE) Hep B Core IgM Ab (NON-REACTIVE) Hepatitis C Ab (EIA) (NON-REACTIVE) Hep C Ab Signal/Cutoff (<1.00) SARS-CoV-2, RNA, NAAT NEGATIVE (NEGATIVE) 05/02/21 05/02/21 05/02/21 Range/Units 11:36 11:36 11:36 WBC (4.8-10.8) K/uL RBC (4.2-5.4) M/uL Hgb (12.0-16.0) g/dL Hct (37-47) % MCV (80-100) fL MCH (25-34) pg MCHC (32-36) g/dL RDW Std Deviation (36.4-46.3) fL RDW Coeff of Dl (11.5-14.5) % Plt Count (130-400) K/uL MPV (7.4-10.4) fL Immature Gran % (Auto) % Neut % (Auto) % Lymph % (Auto) % [place] % (Auto) % Eos % (Auto) % Baso % (Auto) % Neut # (Auto) (1.4-6.5) K/uL Lymph # (Auto) (1.2-3.4) K/uL [place] # (Auto) (0.11-0.59) K/uL Eos # (Auto) (0-0.5) K/uL Baso # (Auto) (0-0.2) K/uL Immature Gran # (Auto) (0.00-0.02) K/uL PT 11.4 (9.0-12.0) Seconds INR 1.1 (0.9-1.1) Sodium 137 (136-145) mmol/L Potassium 3.7 (3.5-5.1) mmol/L Chloride 104 (98-107) mmol/L Carbon Dioxide 23 (21-32) mmol/L Anion Gap 10 (3-11) BUN 10 (6-23) mg/dl Creatinine 0.74 (0.6-1.2) mg/dl Est Cr Clr Drug Dosing 87.6 ml/min Est GFR ( Amer) 97.8 ml/min Est GFR (Non-Af Amer) 84.4 ml/min BUN/Creatinine Ratio 13.5 (10-20) Glucose 186 H (70-99(Fasting)) mg/dl POC Glucose (70-99) mg/dl Estimat Average Glucose mg/dl Hemoglobin A1c (4.5-5.6) % Calcium 9.1 (8.5-10.1) mg/dl Total Bilirubin 3.7 H (0.2-1.0) mg/dl AST 341 H (13-39) U/L ALT 631 H (7-52) U/L Alkaline Phosphatase 187 H (34-104) U/L Troponin I < 0.03 (0-0.04) ng/ml Total Protein 7.1 (6.0-8.3) gm/dl Albumin 4.1 (3.4-5.0) gm/dl Globulin 3.0 (2.5-4.0) gm/dl Albumin/Globulin Ratio 1.4 (0.9-2) Lipase 15 (11-82) U/L Urine Color Urine Appearance (Clear) Urine pH (4.5-7.5) Ur Specific [place] (1.000-1.030) Urine Protein (Negative) Urine Glucose (UA) (Negative) Urine Ketones (Negative) Urine Blood (Negative) Urine Nitrite (Negative) Urine Bilirubin (Negative) Urine Urobilinogen (Negative) Ur Leukocyte Esterase (Negative) Urine WBC (Auto) (0-5) /hpf Urine RBC (Auto) (0-4) /hpf U Hyaline Cast (Auto) (0-5) /lpf U Epithel Cells (Auto) (0-5) /lpf Urine Bacteria (Auto) (Negative) Urine Yeast Hepatitis A IgM Ab NON-REACTIVE (NON-REACTIVE) Hep Bs Antigen NON-REACTIVE (NON-REACTIVE) Hep B Core IgM Ab NON-REACTIVE (NON-REACTIVE) Hepatitis C Ab (EIA) NON-REACTIVE (NON-REACTIVE) Hep C Ab Signal/Cutoff 0.02 (<1.00) SARS-CoV-2, RNA, NAAT (NEGATIVE) 05/02/21 05/02/21 Range/Units 11:36 11:30 WBC 6.16 (4.8-10.8) K/uL RBC 4.01 L (4.2-5.4) M/uL Hgb 13.4 (12.0-16.0) g/dL Hct 39.0 (37-47) % MCV 97.3 (80-100) fL MCH 33.4 (25-34) pg MCHC 34.4 (32-36) g/dL RDW Std Deviation 45.4 (36.4-46.3) fL RDW Coeff of Dl 12.7 (11.5-14.5) % Plt Count 180 (130-400) K/uL MPV 11.3 H (7.4-10.4) fL Immature Gran % (Auto) 0.3 % Neut % (Auto) 69.1 % Lymph % (Auto) 15.9 % [place] % (Auto) 10.7 % Eos % (Auto) 3.4 % Baso % (Auto) 0.6 % Neut # (Auto) 4.25 (1.4-6.5) K/uL Lymph # (Auto) 0.98 L (1.2-3.4) K/uL [place] # (Auto) 0.66 H (0.11-0.59) K/uL Eos # (Auto) 0.21 (0-0.5) K/uL Baso # (Auto) 0.04 (0-0.2) K/uL Immature Gran # (Auto) 0.02 (0.00-0.02) K/uL PT (9.0-12.0) Seconds INR (0.9-1.1) Sodium (136-145) mmol/L Potassium (3.5-5.1) mmol/L Chloride (98-107) mmol/L Carbon Dioxide (21-32) mmol/L Anion Gap (3-11) BUN (6-23) mg/dl Creatinine (0.6-1.2) mg/dl Est Cr Clr Drug Dosing ml/min Est GFR ( Amer) ml/min Est GFR (Non-Af Amer) ml/min BUN/Creatinine Ratio (10-20) Glucose (70-99(Fasting)) mg/dl POC Glucose (70-99) mg/dl Estimat Average Glucose mg/dl Hemoglobin A1c (4.5-5.6) % Calcium (8.5-10.1) mg/dl Total Bilirubin (0.2-1.0) mg/dl AST (13-39) U/L ALT (7-52) U/L Alkaline Phosphatase (34-104) U/L Troponin I (0-0.04) ng/ml Total Protein (6.0-8.3) gm/dl Albumin (3.4-5.0) gm/dl Globulin (2.5-4.0) gm/dl Albumin/Globulin Ratio (0.9-2) Lipase (11-82) U/L Urine Color [place] Urine Appearance Cloudy A (Clear) Urine pH 5.5 (4.5-7.5) Ur Specific [place] 1.032 H (1.000-1.030) Urine Protein 1+ H (Negative) Urine Glucose (UA) 2+ H (Negative) Urine Ketones Trace H (Negative) Urine Blood 1+ H (Negative) Urine Nitrite Positive A (Negative) Urine Bilirubin 3+ H (Negative) Urine Urobilinogen Negative (Negative) Ur Leukocyte Esterase 1+ H (Negative) Urine WBC (Auto) 10-30 H (0-5) /hpf Urine RBC (Auto) 0-4 (0-4) /hpf U Hyaline Cast (Auto) 5-10 H (0-5) /lpf U Epithel Cells (Auto) 0-5 (0-5) /lpf Urine Bacteria (Auto) 4+ H (Negative) Urine Yeast Not Reportable Hepatitis A IgM Ab (NON-REACTIVE) Hep Bs Antigen (NON-REACTIVE) Hep B Core IgM Ab (NON-REACTIVE) Hepatitis C Ab (EIA) (NON-REACTIVE) Hep C Ab Signal/Cutoff (<1.00) SARS-CoV-2, RNA, NAAT (NEGATIVE)
[2021-05-03] MEDS: FAMOTIDINE 20 MG TAB PO SCH (10:01)
[2021-05-03] MEDS ORDERED: oxyCODONE HCL IR 5 MG TAB (IMMEDIATE RELEASE) PO STA ×2 (10:02→15:04)
[2021-05-03] MEDS: buPROPion SR 100 MG TABCR PO SCH ×2 (10:02→17:47)
[2021-05-03] MEDS: LACTATED RINGER'S 1,000 ML IV SCH (11:29)
[2021-05-03] MEDS ORDERED: OPTIRAY 320 125ml IV ONE (13:39)
--- NOTE | 2021-05-03 14:05 | CT Scan Report ---
CT angio chest PE protocol CT DOSE: 635.70 mGy.cm HISTORY: 65 years-old Female with recent dyspnea, pancreatic mass; eval PE. Acute shortness of hesham th in patient with reported pancreatic mass TECHNIQUE: Multiple CTA images of the chest were obtained after the intravenous administration of 120 ml Optiray. Coronal and sagittal MIPS were obtained from the axial data set and were submitted for review. All measurements were obtained according to NASCET criteria. A dose lowering technique was u tilized adhering to the principles of ALARA. COMPARISON: CT abdomen and pelvis 05/02/2021 FINDINGS: CTA: The heart is mildly enlarged. No pericardial effusion. Atherosclerosis of the thoracic aorta. Ectasia of the ascending segment measuring up to 3.9 cm. No dissection. Limited visualization of the ulnar a rterial segmental and subsegmental branches. No filling defects identified to suggest thromboembolic disease. CT CHEST: Prior thyroidectomy. No pathologically enlarged lymph nodes. No pneumothorax, pleural effusion, airsp cullen consolidation or airspace consolidation to suggest pneumonia. Bronchial wall thickening with mild bibasilar mucous plugging. Subsegmental linear subsegmental atelectasis/scarring of the left greater than right lung bases. Prior Tenisha-en-Y gastric bypass. Mild associated wall thickening. Hepatomegaly with hepatic steatosis. There are 2 ill-defined lesions within the right hepatic lobe measuring up to 2.2 cm. The gallbladde r is distended and demonstrates increased attenuation suspicious for gallbladder sludge. Unremarkable soft tissues. No acute fracture. Degenerative changes of the shoulders and spine. No destructive bon e lesion. IMPRESSION: 1. Cardiomegaly without pulmonary emboli. The segmental and subsegmental branches however are not wel l visualized secondary to respiratory motion artifact. 2. Bronchial wall thickening suggestive of bronchitis with mild bibasilar mucous plugging and subsegm ental left basilar atelectasis. 3. Hepatomegaly with hepatic steatosis. 4. There are two lesions of the right hepatic lobe redemonstrated measuring up to 2.2 cm suggestive o f probable hemangiomata. 5. Prior Tenisha-en-Y gastric bypass. ACT 112: Negative or not required by law. The above report was generated using voice recognition software. It may contain grammatical, syntax o r spelling errors. Electronically signed by: Sebastian Hernandez M.D. 05/03/2021 2:04 PM
--- NOTE | 2021-05-03 14:22 | Surgery Progress Note ---
Date of Service May 03, 2021 Assessment & Plan (1) Transaminitis: Plan: Patient here w/ elevated liver enzymes -MRCP was obtained revealing biliary and pancreatic ductal dilatation along with a possible 2.1 cm pancreatic head mass -Discussed findings with GI, they are planning on an outpatient EUS-[facility] procedure on Saturday (given h/o gastric bypass) -Will sign off, please call with any questions/concerns Admission and Anticipated Discharge Date Admission Date: May 02, 2021 Subjective Patient sitting at the bedside with . Has been previously informed of MRCP results by GI. Physical Exam Physical Exam: awake/alert Gastrointestinal (Abdomen): Percussion/Palpation: abdomen soft Results & Data ([facility]) Vital Signs (Past 12 Hours) Vital Signs Temp Pulse Pulse Resp BP Pulse Ox 05/03/21 11:26 147/90 H 05/03/21 10:00 166/95 H 05/03/21 07:56 36.6 C 65 16 135/82 94 05/03/21 03:05 65 20 95 PG Care Time/CCT Total # of Minutes Spent Total Time Spent with Patient: Total time spent is greater than 50% in coordination of care (as documented) at patient's floor/unit and/or counseling patient: Coding Level of Care Code 85372 Subseq Hosp Care Lvl 1 Diagnoses Transaminitis R74.01
[2021-05-03] MEDS ORDERED: KETOROLAC TROMETHAMINE 15 MG/ML VIAL IV ONE (15:04)
--- NOTE | 2021-05-03 16:23 | Gastroenterology Progress Note ---
Date of Service May 03, 2021 Assessment & Plan Admission and Anticipated Discharge Date Admission Date: May 02, 2021 Subjective I saw the patient today and discussed with her and her about the findi ngs on imaging, highly concerning for pancreatic head malignancy. In view of RYGB, planned for [facility] as OP on Saturday with me at [facility]. I explained to her in details about the procedure, risk, benefit and alternatives and she agreed. Can discharge the patient home today from my perspective. Advance her diet as tolerated. PO Cipro till she get the procedure on Saturday. Results & Data ([facility]) Vital Signs (Past 12 Hours) Vital Signs Temp Pulse Resp BP Pulse Ox 05/03/21 14:37 36.7 C 58 L 16 138/86 95 05/03/21 11:26 147/90 H 05/03/21 10:00 166/95 H 05/03/21 07:56 36.6 C 65 16 135/82 94
[2021-05-03] MEDS ORDERED: INSULIN ASPART PER UNIT SC SCH (16:30)
[2021-05-03] MEDS ORDERED: Nursing to Pharmacy Communication SCH (16:45)
[2021-05-03] MEDS ORDERED: cefTRIAXone SODIUM 2,000 MG in DEXTROSE 5% 50 ML IV SCH ×2 (17:45→20:00)
--- NOTE | 2021-05-03 17:59 | Discharge Summary ---
Date of Service date of admission - May 02, 2021 date of discharge - May 03, 2021 Admission HPI Per Admitting Provider Patient is a 65-year-old female with past medical history significant for history of hypothyroidism, gastric bypass in 2005, hypertension, depression, morbid obesity, asthma, and obstructive sleep apnea who presents today under the direction of her PCP due to elevated LFTs on outpatient lab work. Patient reports she had been experiencing generalized weakness and fatigue over the past 5-6 weeks, she originally attributed this to depression over family trouble, however over the past two weeks has become out of breath with activities she previously tolerated well, such as carrying laundry basket up the stairs. This prompted her PCP to perform routine lab work on 04/18, which was significant for slightly elevated liver enzymes, otherwise unrevealing. No additional interventions or medications were initiated at that time. On Saturday, 04/28, she experienced a right sided temporal headache with nausea that persisted over the weekend. She has one episode of lightheadedness over the weekend lasting for 30 seconds, otherwise did not experience any LOC, syncope, numbness/tingling, focal weakness, vision loss/changes speech difficulties, or confusion. She had taken Pepto-Bismol for nausea without alleviation. She scheduled an appt with her PCP yesterday for evaluation, who repeated labs, which showed a significant increase in live enzymes from 04/18. In addition to above, patient states she has had brown urine for the past day, light stools for a few weeks, and occasional suprapubic pressure. She notes an unintentional 8 lb weight loss over the past few weeks, but believes she has gained most of it back. Denies fever/chills, night sweats, nausea/vomiting aside from this weekend, decreased appetite, abdominal pain prior to or after meals, jaundic, icterus, pruritus, or edema. ~6 weeks ago, patient ordered a weight loss supplement on the internet, Exipure and has been taking one pill daily, otherwise no new medications. Has a distant history of thyroid cancer in 1973 and some great-aunts with breast cancer however no personal or family history of stomach, lung, liver, pancreatic, or colon cancer. Principal Diagnosis 1. pancreatic head mass 2. abnormal LFTs 2nd to #1 Discharge Exam gen - NAD, obese; anxious/tearful eyes - minimal icterus mouth - MMM neck - no JVD heart - RRR, s1 s2, no murmur lungs - CTA b/l abd - soft, NT, ND, BS+, no HSM ext - pulses 2+ b/l Discharge Data Allergies Allergy/AdvReac Type Severity Reaction Status Date / Time Sulfa (Sulfonamide Allergy Unknown Verified 05/02/21 12:08 Antibiotics) Consultations [facility] [address] Gastroenterology General Surgery Health Information Management Ordered Studies Abdomen/Pelvis CT 05/02/21 11:27 CT SCAN OF THE ABDOMEN AND PELVIS WITH IV CONTRAST CLINICAL HISTORY: Nausea. Elevated hepatic transaminases. COMPARISON STUDY: Renal ultrasound dated 02/14/2021. Abdominal CT dated 09/10/2019. TECHNIQUE: Following the IV administration of 94 cc of Optiray 320, CT scan of the abdomen and pelvis is performed from the lung bases to the proximal femora. Images are reviewed in the axial, sagittal, and coronal planes. IV contrast was administered without complication. A dose lowering technique was utilized adhering to the principles of ALARA. CT DOSE: 1459.82 mGy.cm FINDINGS: Lung bases: The heart is normal in size and without pericardial effusion. The lung bases are noting mild bibasilar scarring/atelectasis. Liver: The contrast-enhanced liver is enlarged, measuring 21.2 cm in length. The liver demonstrates diffusely diminished attenuation consistent with severe hepatic steatosis. Fatty sparing is seen adjacent to gallbladder fossa. There is no intrahepatic biliary ductal dilatation. The hepatic veins and portal veins are patent. A 2.2 cm enhancing lesion in the right lobe as seen on image #90 a second 1.1 cm enhancing lesion is seen in the inferior right lobe on image #161. Gallbladder: The gallbladder is distended but otherwise normal in appearance. Small gallstones are noted on image #202. Spleen: Normal in size and attenuation. Pancreas: The pancreas is atrophic. There is nonspecific prominence of the pancreatic duct which measures up to 9 mm in diameter. Adrenal glands: Unremarkable. Kidneys: The contrast enhanced kidneys are normal in size and without hydronephrosis. The kidneys enhance symmetrically. Foci of cortical scarring are noted in the left kidney. A 13 mm cyst is noted in the right upper pole. Additional subcentimeter cortical hypodensities also likely represent cysts but are too small for definitive characterization. Abdominal vasculature: The abdominal aorta is normal in course and caliber noting mild to moderate atherosclerotic calcification. Stomach and bowel: There is a small hiatal hernia. Postoperative change in consistent with a history of Tenisha-en-Y gastric bypass surgery. There is no bowel obstruction. Mild to moderate fecal retention is seen throughout the colon. The appendix is well-visualized and normal. Peritoneum: There is no intraperitoneal free air or abdominal ascites. Lymphadenopathy: None. Pelvic viscera: The bladder is decompressed and grossly unremarkable. The uterus is surgically absent. No adnexal lesion is seen. Skeletal structures: The skeletal structures are osteopenic. There is mild to moderate lumbosacral spondylosis. There is a chronic superior endplate compression deformity of L4. No lytic or blastic lesions are seen. IMPRESSION: 1. There are no acute infectious or inflammatory findings in the abdomen or pelvis. 2. Hepatomegaly and severe hepatic steatosis. 3. There is postoperative change consistent with a Tenisha-en-Y gastric bypass surgery. No bowel obstruction is identified. 4. The pancreas is atrophic and there is nonspecific dilatation of the pancreatic duct. This is of indeterminant etiology and significance, but appears to represent a change from the 09/10/2019 examination. Nonemergent GI follow-up is recommended. 5. Cholelithiasis within a distended gallbladder. There is no CT evidence of acute cholecystitis. 6. Moderate constipation. 7. There are at least 2 hypervascular hepatic lesions measuring up to 2.2 cm. These likely represent hemangiomas but are incompletely characterized on today's examination. If there is no cancer history these are of low suspicion. If definitive characterization is desired an MRI would likely be required. 8. Additional findings as above. ACT 112: Negative or not required by law. Electronically signed by: Ted Pfeiffer M.D. 05/02/2021 1:05 PM Gallbladder Ultrasound 05/02/21 12:46 ABDOMINAL ULTRASOUND, RIGHT UPPER QUADRANT HISTORY: elevated LFTs. COMPARISON: Abdomen and pelvis CT 05/02/2021. FINDINGS: Pancreas: Obscured by overlying bowel gas. Liver: The liver is echogenic consistent with fatty change. 20 cm in length. Gallbladder: The gallbladder remains distended. No gallbladder wall thickening. There are few small stones and sludge noted within the gallbladder. CBD: 5 mm. Right kidney: No hydronephrosis. IMPRESSION: 1. Hepatomegaly demonstrating fatty change. 2. A few small stones and sludge within the gallbladder which is distended. However, no gallbladder wall thickening. 3. The pancreas was obscured by overlying bowel gas. ACT 112: Negative or not required by law. Electronically signed by: Angelito Mary M.D. 05/02/2021 2:30 PM Cholangiopancreatography MRI 05/02/21 16:22 MRCP CLINICAL HISTORY: Transaminitis. TECHNIQUE: Utilizing a 1.5 Deborah magnet and dedicated coil, multiplanar, multiecho imaging of the upper abdomen was performed utilizing heavily T2 weighted pulsing sequences without IV contrast. COMPARISON STUDY: CT of the abdomen and pelvis and right upper quadrant ultrasound May 02, 2021. FINDINGS: Hepatic steatosis is better depicted on CT of May 02, 2021. The liver is enlarged. A 1.8 cm T2 hyperintense segment 7 hepatic lesion is noted. There is also 0.8 cm T2 hyperintense segment 6 hepatic lesion. Note is made of mild intra and extrahepatic biliary ductal dilatation. The common bile duct measures 7 mm in caliber. There is severe narrowing of the distal common bile duct at the level of the pancreatic head shown best on coronal 3-D MRCP sequence image 95 of 149. No common bile duct calculi identified. In addition, note is made of abrupt caliber change of the pancreatic duct at the level of the pancreatic head. Pancreatic duct measures 7 mm in caliber. Note is made of an additional site of caliber change of the pancreatic duct at the level of the pancreatic body. Although suboptimally assessed on this MRCP study, there is a possible pancreatic head mass which measures approximately 2.1 cm. Pancreatic glandular atrophy is noted. Numerous dilated side branches or small side branch IPMNs are present. No peripancreatic infiltration or fluid is present. Gallbladder is moderately distended. There are small gallstones within the gallbladder. There is no hydronephrosis. The spleen, adrenal glands are unremarkable. Small T2 hyperintense bilateral renal lesions probably reflect cysts. Caliber and wall thickness of visualized small and large bowel are normal. Postoperative findings consistent with Tenisha-en-Y gastric bypass are noted. IMPRESSION: 1. Biliary and pancreatic ductal dilatation with pancreatic glandular atrophy. Caliber change of the common bile duct and main pancreatic duct at the level of the pancreatic head. In addition, caliber change of the pancreatic duct within the pancreatic body. Possible 2.1 cm pancreatic head mass, suboptimally assessed on this exam. While not definitive, these findings are suspicious for a pancreatic neoplasm. GI consultation for consideration for EUS/ERCP is recommended. 2. Cholelithiasis. Gallbladder distention. No pericholecystic fluid or infiltration. 3. Hepatic steatosis and hepatomegaly. 4. Two T2 hyperintense right hepatic lobe lesions. Although suboptimally assessed on this exam, these favor hemangiomas. ACT 112: Positive. There are findings on this exam that require communication between the performing entity and the patient following Patient Test Result Information Act ([place] Act 112) guidelines. Electronically signed by: Anup Harrison M.D. 05/03/2021 8:23 AM Orbit X-Ray 05/02/21 17:01 ORBIT RADIOGRAPHS 3 VIEWS HISTORY: pre-MRI screening. COMPARISON: None. FINDINGS: There are no radiopaque foreign bodies identified within the orbits. IMPRESSION: No radiopaque foreign bodies identified within the orbits. ACT 112: Negative or not required by law. Electronically signed by: Angelito Mary M.D. 05/02/2021 5:25 PM Chest CTA 05/03/21 13:00 CT angio chest PE protocol CT DOSE: 635.70 mGy.cm HISTORY: 65 years-old Female with recent dyspnea, pancreatic mass; eval PE. Acute shortness of breath in patient with reported pancreatic mass TECHNIQUE: Multiple CTA images of the chest were obtained after the intravenous administration of 120 ml Optiray. Coronal and sagittal MIPS were obtained from the axial data set and were submitted for review. All measurements were obtained according to NASCET criteria. A dose lowering technique was utilized adhering to the principles of ALARA. COMPARISON: CT abdomen and pelvis 05/02/2021 FINDINGS: CTA: The heart is mildly enlarged. No pericardial effusion. Atherosclerosis of the thoracic aorta. Ectasia of the ascending segment measuring up to 3.9 cm. No dissection. Limited visualization of the ulnar arterial segmental and subsegmental branches. No filling defects identified to suggest thromboembolic disease. CT CHEST: Prior thyroidectomy. No pathologically enlarged lymph nodes. No pneumothorax, pleural effusion, airspace consolidation or airspace consolidation to suggest pneumonia. Bronchial wall thickening with mild bibasilar mucous plugging. Subsegmental linear subsegmental atelectasis/scarring of the left greater than right lung bases. Prior Tenisha-en-Y gastric bypass. Mild associated wall thickening. Hepatomegaly with hepatic steatosis. There are 2 ill-defined lesions within the right hepatic lobe measuring up to 2.2 cm. The gallbladder is distended and demonstrates increased attenuation suspicious for gallbladder sludge. Unremarkable soft tissues. No acute fracture. Degenerative changes of the shoulders and spine. No destructive bone lesion. IMPRESSION: 1. Cardiomegaly without pulmonary emboli. The segmental and subsegmental branches however are not well visualized secondary to respiratory motion artifact. 2. Bronchial wall thickening suggestive of bronchitis with mild bibasilar mucous plugging and subsegmental left basilar atelectasis. 3. Hepatomegaly with hepatic steatosis. 4. There are two lesions of the right hepatic lobe redemonstrated measuring up to 2.2 cm suggestive of probable hemangiomata. 5. Prior Tenisha-en-Y gastric bypass. ACT 112: Negative or not required by law. The above report was generated using voice recognition software. It may contain grammatical, syntax or spelling errors. Electronically signed by: Sebastian Hernandez M.D. 05/03/2021 2:04 PM Hospital Course (1) Pancreatic mass: The patient presented with elevated liver enzymes in an obstructive pattern with high t.bili, high alk phos, etc. HepA, HepB, HepC, and COVID testing were all negative. She underwent MRCP which demonstrated gallstones but no evidence of cholecystitis or CBD stone. MRCP was highly concerning for a pancreatic head mass ~2.1cm in size. MRCP also demonstrated pancreatic duct and CBD dilatation. [facility] [address] GI was consulted, and Dr Pieter Foley recommended EUS with EDGE procedure. This will be completed within a week of discharge at [facility]. The patient was counseled on her MRCP findings prior to discharge. Of note - the patient had no signs/symptoms of cholangitis while hospitalized. She will be on antibiotics for UTI which will provide some prophylaxis against biliary tract infection, however. (2) Transaminitis: 2nd to biliary obstruction from suspected pancreatic head mass. See above. Advised against use of tylenol and alcohol post-discharge. She will undergo EUS with EDGE procedure by Dr Foley shortly after rolando dove. (3) Hypothyroidism: History of Graves disease and thyroid cancer in 1973, s/p thyroidectomy. Continue levothyroxine 200 mcg daily. TSH was 0.6 during the visit. (4) Hypertension: Continue lisinopril 40 mg daily. BPs were acceptable while hospitalized. (5) UTI (urinary tract infection): 2nd pansensitive e.coli. s/p 2 days of IV rocephin. Will complete 5 days of cefdinir 300mg BID post-d/c. (6) Depression: Continue bupropion 100 mg twice daily and Cymbalta 30 mg daily. (7) Elevated glucose: HbA1C was 7.3%. Patient was informed that she is now a full-blown, type 2 diabetic. She was under significant amounts of stress during this visit due to the prospect of having cancer. Therefore, I did not push her to start checking fingersticks at home. Instead, I recommended that she continue dietary control and f/u with her PCP for this. (8) Asthma: See "dyspnea" below. (9) Obstructive sleep apnea: CPAP at night. (10) Morbid obesity with BMI of 40.0-44.9, adult: BMI 41 (11) Dyspnea on exertion: The patient had had RESENDIZ several weeks prior to admission. Although her symptoms had improved and her O2 sats were normal I obtained a CTA Chest to exclude PEs as the cause of her symptoms. CTA was negative for PEs. However, it did demonstrate signs of bronchial inflammation c/w active asthma. She had just seen her asthma physician and was placed on Trelegy inhaler. She had not begun this of yet. I simply recommended that she start the Trelegy and f/u with her asthma provider if her dyspnea does not baljeet. Total Time Total Time Spent Total Time Spent (In Minutes): 50 Discharge Plan Discharge Items Patient Disposition: Home - Self-Care Reason For Visit: ELEVATED Liver Function Tests Discharge Diagnosis: Elevated liver function tests, dilated bile and pancreatic ducts, and abnormality of the head of the pancreas - to have EDGE procedure for further diagnosis Activity: As commented below Activity Comment: as tolerated Driving/Machine Use: No driving if taking oxycodone pain medication Non-emergency contact: Primary Care Provider and Die Attacher Call non-emergency contact if: you have any medication questions, your symptoms worsen and you have a fever Follow-up/Referrals: Luz Porter MD [Primary Care Provider] - (see your family doctor in 1 week to discuss diabetes, etc.) Pieter Foley MD [Hospitalist] - 05/05/21 (EDGE procedure planned for 05/05/21, at [facility]) Diet: Carb Consistent or DM2 Addtl Attending Provider Instructions: Mrs Cobb, You were hospitalized after having had outpatient labs showing elevation in multiple liver function tests ("LFTs"). A series of studies were done including an ultrasound of the liver & gall bladder, a CT scan of the abdomen, and an MRI of your liver/bile ducts/pancreas/gall bladder. The above studies showed that you have gallstones but the gall bladder otherwise does not appear sick at this time. Your bile duct and pancreatic duct (these carry bile and pancreatic juices, respectively) were both increased in size/dilated. The pancreas did not appear normal on the MRI. The area of concern is in the head of the pancreas. [facility] [address] VIRIDIANA saw you in consult and plans to perform a procedure called "EDGE" this 05/05/21, at [facility]. This will allow the GI doctor to biopsy the pancreas, look at your ducts more closely, place a stent in the ducts if necessary, etc. In addition, we found evidence of a urinary tract infection. 2 days of IV antibiotics were given, and a 5-day course of oral antibiotics will be needed at home. The antibiotic is cefdinir 300mg twice daily x 5 days. Take your first dose tomorrow late morning. The CT scan of the lungs did not show any blood clots. However, it did show bronchial inflammation due to your asthma. Please start the Trelegy inhaler once daily as directed by your asthma doctor. You can also use your albuterol as needed for cough/shortness of breath/etc. For any pain or headache you may use oxycodone pain medication 5mg every 6 hours as needed. No driving if taking this medication, and know that it can cause constipation & sleepiness/drowsiness. You may need to take miralax or something similar to keep your bowels regular if you take the oxycodone. During the stay your sugars were a bit high while here thus we performed the hemoglobin a1c test (see handout). Your HbA1C was 7.3%. This suggests you are a full-blown type 2 diabetic. I do believe this can be controlled with diet. Please follow-up with your family doctor within a week to discuss the diabetes further. I have included some handouts for you. Finally - Please do not take any [id number] tylenol or motrin/ibuprofen/naprosyn/alleve unless cleared by Kourtney kim. Follow-up - see separate section Return to any hospital if - * you develop severe abdominal pain * you have nausea or vomiting not responding to your nausea medication * you have worsening yellowing of the eyes and/or skin; this is called jaundice * you have chest pains * you have worsening shortness of breath * you have a severe headache that won't go away with medications * any other concerns It was my pleasure to meet you and care for you! Dr Apodaca Pending Studies at Discharge: Yes Studies:: Urine culture Stand-Alone Forms: My [facility], Opioid Pain Management, Smoking Cessation Medications and DC Order Prescriptions: New Trelegy Ellipta 100-62.5-25 mcg blister with device 1 inh inhalation DAILY Qty: 60 RF: 0 oxycodone 5 mg tablet 5 mg PO Q6H PRN (Reason: pain) Qty: 10 RF: 0 Continued Premarin 0.625 mg/gram cream 0.625 mg vaginal .COMPLEX Qty: 30 RF: 2 lisinopril 40 mg Tablet 40 mg PO QAM RF: 0 levothyroxine [Synthroid] 200 mcg Tablet 200 mcg PO DAILYBB RF: 0 duloxetine [Cymbalta] 30 mg Capsule,Delayed Release(Dr/Ec) 30 mg PO QAM RF: 0 bupropion HCl 100 mg tablet sustained-release 12 hr 100 mg PO BIDM RF: 0 ondansetron 8 mg tablet,disintegrating 8 mg translingual Q6H PRN (Reason: Nausea) Qty: 12 RF: 0 famotidine [Pepcid] 20 mg Tablet 20 mg PO BID RF: 0 vitamin B complex Tablet 1 tab PO QAM RF: 0 albuterol sulfate [Ventolin HFA] 90 mcg/actuation Hfa Aerosol Inhaler 2 inh INHALATION Q4H PRN (Reason: Shortness Of Breath Or Wheezing) RF: 0 coenzyme Q10 [Co Q-10] 100 mg Capsule 100 mg PO QAM RF: 0 No Action promethazine 25 mg tablet 25 mg PO TID PRN (Reason: nausea and vomiting) Qty: 20 RF: 0 Discharge Orders: Discharge Order (Routine); Ordered 05/03/21 Ordered By: Elton Eagle/Other Patient Handouts: Managing Type 2 Diabetes, Managing Diabetes: The A1C Test, Diabetes: Meal Planning, Diabetes Control Without Meds Admission Data Admit Date/Time: 05/02/21 17:18 Attending Provider: Elton Apodaca Admit Provider: Elton Apodaca Primary Care Provider: Luz Porter Other Providers: Norma Solorzano ; Ramos Woodard Other Interventions: Discharge Summary Assessment (RN) Last Done: 05/03/21 17:54 Coding Level of Care Code 50305 OBS Care - Discharge Diagnoses Transaminitis R74.01 Hypothyroidism E03.9 Hypertension I10 UTI (urinary tract infection) N39.0 Depression F32.A Elevated glucose R73.09 Asthma J45.909 Obstructive sleep apnea G47.33 Pancreatic mass K86.89 Morbid obesity with BMI of 40.0-44.9, adult E66.01; Z68.41 Dyspnea on exertion R06.00
== END 2021-05-03 18:39 | disposition home or self-care (01) | DRG 948 ==
LOC: ED 10:22 → INTOOBSV 17:18 → 3N 17:18